=== PATIENT | male | born 1965 | race Caucasian/White ===

== ENCOUNTER 2016-10-17 09:18 | Emergency (ER) | payer OTHER ==
[2016-10-17] MEDS ORDERED: AZITHROMYCIN 250 MG TABLET PO STA (09:47)
[2016-10-17] MEDS ORDERED: guaiFENesin/DEXTROMETHORPHAN 10 ML UDC PO STA (09:47)
[2016-10-17] MEDS ORDERED: BENZONATATE 100 MG CAPSULE PO STA (09:47)
[2016-10-17] MEDS ORDERED: BENZONATATE 100 MG CAPSULE PO ONE (10:04)
[2016-10-17] MEDS ORDERED: AZITHROMYCIN 250 MG TABLET PO ONE ×2 (10:04→10:14)
[2016-10-17] MEDS ORDERED: guaiFENesin/DEXTROMETHORPHAN 10 ML UDC ONE (10:04)
== END 2016-10-17 10:22 | disposition home or self-care (01) ==
DX: J18.9 Pneumonia, unspecified organism (principal); F17.200 Nicotine dependence, unspecified, uncomplicated
CPT/HCPCS: 99282; 99284; A9270

== ENCOUNTER 2017-12-25 11:41 | Emergency (ER) | payer OTHER ==
[2017-12-25] MEDS ORDERED: SODIUM CHLORIDE 0.9% 1,000 ML IV ONE (12:38)
[2017-12-25] MEDS ORDERED: DEXAMETHASONE 10 MG/ML VIAL IVP STA (12:38)
--- NOTE | 2017-12-25 12:38 | ED Physician Documentation ---
PD HPI FEVER - Stated complaint Stated Complaint: FEVER/CHILLS - Chief complaint Chief Complaint: Fever - History obtained from History obtained from: Patient, Family - History of Present Illness Timing - onset: Last night Timing duration: Hours Timing details: Abrupt onset, Still present Associated symptoms: Chills, Sweats, Rigors, Other (muscle and joint pains.) Contributing factors: No: Sick contact Similar symptoms before: Diagnosis (pneumonia and fuo) Recently seen: Not recently seen - Additional information Additional information: 52 y/o male who has had a cyst removed from the left kidney in September has developed a fever last night with shaking chills and a headache. He does not have other respiratory symptoms. He gives a history of having fever spike and resolve over a day previously. Review of Systems Constitutional: denies: Fever Eyes: denies: Decreased vision Ears: denies: Ear pain Nose: denies: Congestion Throat: denies: Sore throat Cardiac: denies: Chest pain / pressure, Palpitations Respiratory: denies: Dyspnea, Cough GI: denies: Abdominal Pain, Nausea, Vomiting : denies: Dysuria, Frequency Skin: denies: Rash Musculoskeletal: reports: Extremity pain, Joint pain. denies: Neck pain, Back pain, Extremity swelling, Joint swelling Neurologic: denies: Generalized weakness, Focal weakness, Numbness PD PAST MEDICAL HISTORY - Past Medical History Past Medical History: Yes Cardiovascular: Pulmonary embolism - Past Surgical History Past Surgical History: No General: Other - Present Medications Home Medications: Ambulatory Orders Medication Instructions Recorded Confirmed Azithromycin [Zithromax] 250 mg PO DAILY #6 tablet 12/25/17 Rivaroxaban [Xarelto] 20 mg PO 12/25/17 - Allergies Allergies/Adverse Reactions: Allergies Allergy/AdvReac Type Severity Reaction Status Date / Time No Known Drug Allergies Allergy Verified 12/25/17 11:49 - Social History Does the pt smoke?: Yes Smoking Status: Current every day smoker Does the pt drink ETOH?: Yes Does the pt have substance abuse?: No - Immunizations Immunizations are current?: Yes - POLST Patient has POLST: No PD ED PE NORMAL - Vitals Vital signs reviewed: Yes (febrile ) - General General: Alert and oriented X 3, No acute distress, Well developed/nourished - HEENT HEENT: Atraumatic, PERRL, EOMI, Other (both TM's are inflammed with indistinct landmarks. ) - Neck Neck: Supple, no meningeal sign, No bony TTP - Cardiac Cardiac: No murmur, Other (tachy to 110) - Respiratory Respiratory: No respiratory distress - Abdomen Abdomen: Soft, Non tender - Back Back: No CVA TTP, No spinal TTP - Derm Derm: Normal color, Warm and dry, No rash - Extremities Extremities: No deformity, No edema - Neuro Neuro: Alert and oriented X 3, No motor deficit, No sensory deficit Eye Opening: Spontaneous Motor: Obeys Commands Verbal: Oriented GCS Score: 15 - Psych Psych: Normal mood, Normal affect Results - Vitals Vitals: Vital Signs - 24 hr 12/25/17 11:46 Temperature 38.4 C H Heart Rate 100 Respiratory 18 Rate Blood Pressure 126/70 O2 Saturation 97 Oxygen O2 Source Room air - Labs Labs: Laboratory Tests 12/25/17 12/25/17 12/25/17 12:00 12:45 12:45 WBC 11.3 H RBC 4.38 L Hgb 14.2 Hct 41.5 L MCV 94.7 H MCH 32.4 H MCHC 34.2 RDW 13.6 Plt Count 233 MPV 6.7 L Neut # 9.8 H Lymph # 0.8 L [place] # 0.7 Eos # 0.0 Baso # 0.1 Absolute Nucleated RBC 0.00 Nucleated RBC % 0.0 Sodium 132 L Potassium 3.9 Chloride 101 Carbon Dioxide 22 Anion Gap 9.0 BUN 10 Creatinine 0.9 Estimated GFR (MDRD) 89 Glucose 114 H Calcium 8.9 Total Bilirubin 0.9 AST 25 ALT 24 Alkaline Phosphatase 64 Troponin I Total Protein 7.4 Albumin 4.1 Globulin 3.3 Albumin/Globulin Ratio 1.2 Lipase 16 L Urine Color Urine Clarity Urine pH Ur Specific [place] Urine Protein Urine Glucose (UA) Urine Ketones Urine Occult Blood Urine Nitrite Urine Bilirubin Urine Urobilinogen Ur Leukocyte Esterase Ur Microscopic Review Urine Culture Comments Influenza A (Rapid) Negative Influenza B (Rapid) Negative 12/25/17 12/25/17 12:45 13:20 WBC RBC Hgb Hct MCV MCH MCHC RDW Plt Count MPV Neut # Lymph # [place] # Eos # Baso # Absolute Nucleated RBC Nucleated RBC % Sodium Potassium Chloride Carbon Dioxide Anion Gap BUN Creatinine Estimated GFR (MDRD) Glucose Calcium Total Bilirubin AST ALT Alkaline Phosphatase Troponin I < 0.04 Total Protein Albumin Globulin Albumin/Globulin Ratio Lipase Urine Color DARK YELLOW Urine Clarity CLEAR Urine pH 5.5 Ur Specific [place] 1.025 Urine Protein NEGATIVE Urine Glucose (UA) NEGATIVE Urine Ketones TRACE Urine Occult Blood NEGATIVE Urine Nitrite NEGATIVE Urine Bilirubin NEGATIVE Urine Urobilinogen 0.2 (NORMAL) Ur Leukocyte Esterase NEGATIVE Ur Microscopic Review NOT INDICATED Urine Culture Comments NOT INDICATED Influenza A (Rapid) Influenza B (Rapid) - Rads (name of study) 2 veiw chest Radiology: Prelim report reviewed (Impression: Minimal bibasilar atelectatic changes without acute consolidation.), EMP read indepedently, See rad report PD MEDICAL DECISION MAKING - ED course Complexity details: reviewed old records, reviewed results, re-evaluated patient , considered differential, d/w patient, d/w family ED course: 52-year-old male with acute fever chills and sweats has otitis on examination his chest x-ray is unremarkable blood work shows mild elevation of white blood cell count he is treated in the emergency department with dexamethasone and Rocephin we will place him on some azithromycin. Departure - Departure Disposition: 01 Home, Self Care Clinical Impression: Otitis media Qualifiers: Otitis media type: suppurative Chronicity: acute Laterality: bilateral Recurrence: not specified as recurrent Spontaneous tympanic membrane rupture: without spontaneous rupture Qualified Code(s): H66.003 - Acute suppurative otitis media without spontaneous rupture of ear drum, bilateral Instructions: ED Otitis Media Acute Adult Follow-Up: MONTY ODELL MD [Primary Care Provider] - Prescriptions: Azithromycin [Zithromax] 250 mg PO DAILY #6 tablet
[2017-12-25 12:52] LABS: BASOPHILS # (AUTO) 0.1 10^3/uL (0.0-0.1); BASOPHILS % (AUTO) 0.5 %; HGB - HEMOGLOBIN 14.2 g/dL (14.0-18.0); LYMPHOCYTES # (AUTO) 0.8 10^3/uL (1.5-3.5); LYMPHOCYTES % (AUTO) 7.1 %; MEAN CORPUSCULAR HEMOGLOBIN 32.4 pg (27.0-31.0); MEAN CORPUSCULAR HGB CONC 34.2 g/dL (32.0-36.0); MEAN CORPUSCULAR VOLUME 94.7 fL (80.0-94.0); MEAN PLATELET VOLUME 6.7 fL (7.4-11.4); MONOCYTES # (AUTO) 0.7 10^3/uL (0.0-1.0); MONOCYTES % (AUTO) 6.2 %; NEUTROPHILS # (AUTO) 9.8 10^3/uL (1.5-6.6); NEUTROPHILS % (AUTO) 86.2 %; PLT - PLATELET COUNT 233 10^3/uL (130-450); RED BLOOD COUNT 4.38 10^6/uL (4.70-6.10); RED CELL DISTRIBUTION WIDTH 13.6 % (12.0-15.0); WHITE BLOOD COUNT 11.3 x10^3/uL (4.8-10.8)
[2017-12-25 13:05] LABS: ALBUMIN 4.1 g/dL (3.2-5.5); ALBUMIN/GLOBULIN RATIO 1.2 (1.0-2.2); BILIRUBIN,TOTAL 0.9 mg/dL (0.2-1.0); CALCIUM 8.9 mg/dL (8.5-10.3); CREATININE 0.9 mg/dL (0.6-1.2); TOTAL PROTEIN 7.4 g/dL (6.7-8.2)
--- NOTE | 2017-12-25 13:15 | XRAY Report ---
EXAM: CHEST RADIOGRAPHY EXAM DATE: 12/25/2017 12:58 PM. CLINICAL HISTORY: Fever with chills. COMPARISON: 04/25/2015. TECHNIQUE: 2 views. FINDINGS: Lungs/Pleura: Minimal bibasilar atelectatic changes seen without evidence of acute consolidation. Mediastinum: Heart and mediastinal contours are unremarkable. Other: None. IMPRESSION: Minimal bibasilar atelectatic changes without acute consolidation. [facility] Referring Provider Line: [phone] SITE ID: [id number]
[2017-12-25] MEDS ORDERED: cefTRIAXone 1 GM in SODIUM CHLORIDE 0.9% MINIBAG 100 ML IV STA (13:25)
[2017-12-25 13:37] LABS: CLARITY,URINE CLEAR (CLEAR); GLUCOSE, URINE (UA) NEGATIVE (NEGATIVE); KETONES,URINE (UA) TRACE mg/dL (NEGATIVE); LEUKOCYTE ESTERASE, URINE NEGATIVE (NEGATIVE); NITRITE,URINE NEGATIVE (NEGATIVE); OCCULT BLOOD,URINE NEGATIVE (NEGATIVE); PH,URINE 5.5 PH (5.0-7.5); PROTEIN,URINE NEGATIVE (NEGATIVE); UROBILINOGEN,URINE 0.2 (NORMAL) E.U./dL (NORMAL)
[2017-12-25 13:38] LABS: BILIRUBIN,URINE NEGATIVE (NEGATIVE); ICTOTEST,URINE NEGATIVE
[2017-12-25] MEDS ORDERED: KETOROLAC 60 MG/2 ML VIAL IVP STA (14:04)
[2017-12-25 14:16] VITALS: BP 126/66
== END 2017-12-25 14:45 | disposition home or self-care (01) ==
LOC: ED 11:41
DX: H66.003 Acute suppurative otitis media without spontaneous rupture of ear drum, bilateral (principal); Z86.711 Personal history of pulmonary embolism; Z79.01 Long term (current) use of anticoagulants; F17.200 Nicotine dependence, unspecified, uncomplicated
CPT/HCPCS: 36415; 71046; 80053; 81001; 81003; 83690; 84484; 85025; 87086; 87275; 87276; 96374; 96375; 99283

== ENCOUNTER 2018-06-13 13:08 | Outpatient (CLI) | payer OTHER | END 2018-06-13 13:09 | disposition home or self-care (01) | LOC: SC 13:08 | PROVIDERS: ATTEND Nurse Practitioner Family | DX: G47.33 Obstructive sleep apnea (adult) (pediatric) (principal); E66.01 Morbid (severe) obesity due to excess calories; Z68.41 Body mass index [BMI] 40.0-44.9, adult | CPT/HCPCS: 99204; 99212 ==

== ENCOUNTER 2018-08-03 10:34 | Outpatient (CLI) | payer OTHER | END 2018-08-03 10:35 | disposition home or self-care (01) | LOC: SC 10:34 | PROVIDERS: ATTEND Nurse Practitioner Family | DX: G47.33 Obstructive sleep apnea (adult) (pediatric) (principal) | CPT/HCPCS: 99212; 99214 ==

== ENCOUNTER 2018-11-10 10:40 | Outpatient (CLI) | payer OTHER | END 2018-11-10 10:41 | disposition home or self-care (01) | LOC: SC 10:40 | PROVIDERS: ATTEND Nurse Practitioner Family | DX: G47.33 Obstructive sleep apnea (adult) (pediatric) (principal) | CPT/HCPCS: 99212; 99214 ==

== ENCOUNTER 2019-02-07 08:16 | Outpatient (CLI) | payer OTHER | END 2019-02-07 08:17 | disposition home or self-care (01) | LOC: SC 08:16 | PROVIDERS: ATTEND Nurse Practitioner Family | DX: G47.33 Obstructive sleep apnea (adult) (pediatric) (principal) | CPT/HCPCS: 99212; 99214 ==

== ENCOUNTER 2019-03-02 21:05 | Emergency (ER) | payer OTHER ==
[2019-03-02] MEDS ORDERED: SODIUM CHLORIDE 0.9% 1,000 ML IV ONE (21:46)
[2019-03-02 21:55] LABS: BASOPHILS # (AUTO) 0.1 10^3/uL (0.0-0.1); BASOPHILS % (AUTO) 1.3 %; EOSINOPHILS # (AUTO) 0.5 10^3/uL (0.0-0.7); EOSINOPHILS % (AUTO) 6.2 %; HGB - HEMOGLOBIN 15.1 g/dL (14.0-18.0); LYMPHOCYTES # (AUTO) 2.3 10^3/uL (1.5-3.5); LYMPHOCYTES % (AUTO) 28.5 %; MEAN CORPUSCULAR HEMOGLOBIN 31.7 pg (27.0-31.0); MEAN CORPUSCULAR HGB CONC 32.6 g/dL (32.0-36.0); MEAN CORPUSCULAR VOLUME 97.1 fL (80.0-94.0); MEAN PLATELET VOLUME 9.1 fL (7.4-11.4); MONOCYTES # (AUTO) 1.1 10^3/uL (0.0-1.0); MONOCYTES % (AUTO) 12.9 %; NEUTROPHILS # (AUTO) 4.1 10^3/uL (1.5-6.6); NEUTROPHILS % (AUTO) 50.6 %; PLT - PLATELET COUNT 309 10^3/uL (130-450); RED BLOOD COUNT 4.77 10^6/uL (4.70-6.10); RED CELL DISTRIBUTION WIDTH 12.6 % (12.0-15.0); WHITE BLOOD COUNT 8.2 x10^3/uL (4.8-10.8)
--- NOTE | 2019-03-02 21:56 | ED Physician Documentation ---
PD HPI CHEST PAIN - Stated complaint Stated Complaint: CP/COLMENARES - Chief complaint Chief Complaint: Cardiac - History obtained from History obtained from: Patient, Family - History of Present Illness Timing - onset: Today Timing - onset during: Rest Timing - duration: Minutes Timing - details: Abrupt onset, Now resolved Pain level max: 4 Pain level now: 0 Quality: Pressure, Tightness Location: Substernal Improved by: Nothing Worsened by: Other (nothing) Associated symptoms: No: Shortness of air, Diaphoresis, Nausea, Vomiting, Feeling faint / dizzy, General Weakness, Palpitations, Cough Similar symptoms before: Diagnosis (PE) Recently seen: Not recently seen - Additional information Additional information: 53-year-old male with a history of factor V Leiden and protein S deficiency who is on lifetime and a coagulation with Xarelto was sitting on his couch this evening when he developed substernal chest pain. He did develop a bit of a headache associated with this as well he did not have shortness of breath or diaphoresis. The episode lasted about 15 to 20 minutes he had pain of a 4 out of 10 maximum 0 now. He is come to the emerge department with concerns of another pulmonary and was not. He states this is not what this felt exactly like previously. He does indicate that he was out doing a lot of work this afternoon and he is quite active at work. He indicates that he has gained a lot of weight and has been working to improve his endurance after he had an operation to remove a cyst in his adrenal gland on the left side. He had to have this procedure done as an open procedure and is taken some time to recover from it. 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 He states that he tolerated this well he sweated a lot. Review of Systems Constitutional: reports: Fatigue, Sweats. denies: Fever Eyes: denies: Decreased vision Ears: denies: Ear pain Nose: denies: Rhinorrhea / runny nose, Congestion Throat: denies: Sore throat Cardiac: reports: Chest pain / pressure. denies: Palpitations, Pedal edema, Calf pain Respiratory: reports: Dyspnea. denies: Cough GI: denies: Abdominal Pain, Nausea, Vomiting : denies: Dysuria PD PAST MEDICAL HISTORY - Past Medical History Past Medical History: Yes Cardiovascular: Pulmonary embolism Respiratory: Shortness of breath Neuro: None Endocrine/Autoimmune: None GI: Other : None HEENT: Other Psych: Depression Musculoskeletal: Chronic back pain Derm: None - Past Surgical History Past Surgical History: No General: Other - Present Medications Home Medications: Ambulatory Orders Medication Instructions Recorded Confirmed Rivaroxaban [Xarelto] 20 mg PO DAILY 12/25/17 05/18/18 Bupropion HCl [Wellbutrin Xl] 1 tab ORAL DAILY 04/20/18 05/18/18 Sildenafil Citrate [Viagra] 1 tab ORAL PRN PRN 04/20/18 05/18/18 - Allergies Allergies/Adverse Reactions: Allergies Allergy/AdvReac Type Severity Reaction Status Date / Time No Known Drug Allergies Allergy Verified 05/18/18 14:21 - Social History Does the pt smoke?: Yes Smoking Status: Current every day smoker Does the pt drink ETOH?: Yes Does the pt have substance abuse?: No - Immunizations Immunizations are current?: Yes - POLST Patient has POLST: No PD ED PE NORMAL - Vitals Vital signs reviewed: Yes (hypertensive mild ) - General General: Alert and oriented X 3, No acute distress, Well developed/nourished - HEENT HEENT: Atraumatic, PERRL, EOMI - Neck Neck: Supple, no meningeal sign, No bony TTP - Cardiac Cardiac: RRR, No murmur - Respiratory Respiratory: No respiratory distress, Clear bilaterally - Abdomen Abdomen: Soft, Non tender - Back Back: No CVA TTP, No spinal TTP - Derm Derm: Normal color, Warm and dry, No rash - Extremities Extremities: No deformity, No tenderness to palpate, Normal ROM s pain, No edema, No calf tenderness / cord - Neuro Neuro: Alert and oriented X 3, No motor deficit, No sensory deficit, Normal speech Eye Opening: Spontaneous Motor: Obeys Commands Verbal: Oriented GCS Score: 15 - Psych Psych: Normal mood, Normal affect Results - Vitals Vitals: Vital Signs - 24 hr 03/02/19 03/02/19 03/02/19 21:08 21:30 21:47 Temperature 36.6 C Heart Rate 67 63 Respiratory 16 17 17 Rate Blood Pressure 132/72 H 125/70 O2 Saturation 96 95 03/02/19 03/02/19 03/02/19 22:02 22:26 22:54 Temperature Heart Rate 60 69 70 Respiratory 17 17 15 Rate Blood Pressure 118/71 106/67 O2 Saturation 95 94 03/03/19 00:08 Temperature Heart Rate 64 Respiratory 16 Rate Blood Pressure 108/68 O2 Saturation 97 Oxygen O2 Source Room air - EKG (time done) 2115 Rate: Rate (enter#) (65) Rhythm: NSR Compare to prior EKG: Changed from prior EKG (SPT 04-25-2015 rate has decreased and the voltage is less) Computer interpretation: Agree with computer - Labs Labs: Laboratory Tests 03/02/19 03/02/19 03/02/19 21:40 21:40 21:40 WBC 8.2 RBC 4.77 Hgb 15.1 Hct 46.3 MCV 97.1 H MCH 31.7 H MCHC 32.6 RDW 12.6 Plt Count 309 MPV 9.1 Neut # (Auto) 4.1 Lymph # (Auto) 2.3 [place] # (Auto) 1.1 H Eos # (Auto) 0.5 Baso # (Auto) 0.1 Absolute Nucleated RBC 0.00 Nucleated RBC % 0.0 Sodium 142 Potassium 4.3 Chloride 102 Carbon Dioxide 29 Anion Gap 11.0 BUN 14 Creatinine 1.2 Estimated GFR (MDRD) 63 L Glucose 95 Calcium 9.6 Total Bilirubin 0.7 AST 26 ALT 29 Alkaline Phosphatase 70 Troponin I < 0.04 Total Protein 7.5 Albumin 4.2 Globulin 3.3 Albumin/Globulin Ratio 1.3 Lipase 28 03/02/19 23:40 WBC RBC Hgb Hct MCV MCH MCHC RDW Plt Count MPV Neut # (Auto) Lymph # (Auto) [place] # (Auto) Eos # (Auto) Baso # (Auto) Absolute Nucleated RBC Nucleated RBC % Sodium Potassium Chloride Carbon Dioxide Anion Gap BUN Creatinine Estimated GFR (MDRD) Glucose Calcium Total Bilirubin AST ALT Alkaline Phosphatase Troponin I < 0.04 Total Protein Albumin Globulin Albumin/Globulin Ratio Lipase - Rads (name of study) chest Radiology: Prelim report reviewed (Impression: No acute radiographic pulmonary abnormalities.), EMP read indepedently, See rad report Procedures - IVC sono (time) 2119 Bedside IVC sono: IVC measures (cm) (1.6), IVC collapsed c insp (cm) (complete), Dehydration (est 1 liter deficit) PD MEDICAL DECISION MAKING - ED course Complexity details: reviewed results, re-evaluated patient, considered differential, d/w patient, d/w family ED course: Chest pain is resolved headache remains patient is found to be dehydrated on interrogation the inferior vena cava. Is administered saline.He has improvement in his headache feels well and a second troponin is obtained. His episode occurred about 830 and lasted 10 minutes. His second troponin is done at 11:30 PM. Departure - Departure Disposition: 01 Home, Self Care Clinical Impression: Dehydration Condition: Stable Instructions: ED Dehydration Follow-Up: MONTY ODELL MD [Primary Care Provider] - Discharge Date/Time: 03/03/19 00:15
[2019-03-02 22:10] LABS: ALBUMIN 4.2 g/dL (3.2-5.5); ALBUMIN/GLOBULIN RATIO 1.3 (1.0-2.2); BILIRUBIN,TOTAL 0.7 mg/dL (0.2-1.0); CALCIUM 9.6 mg/dL (8.5-10.3); CREATININE 1.2 mg/dL (0.6-1.2); TOTAL PROTEIN 7.5 g/dL (6.7-8.2)
--- NOTE | 2019-03-02 22:30 | XRAY Report ---
Reason: chest pain Procedure Date: 03/02/2019 Accession Number: [id number] / [id number] Procedure: XR - Chest 2 View X-Ray CPT Code: 75968 FULL RESULT: EXAM: CHEST RADIOGRAPHY EXAM DATE: 03/02/2019 10:02 PM. CLINICAL HISTORY: Chest pain. COMPARISON: CHEST 2 VIEW 12/25/2017 12:40 PM. TECHNIQUE: 2 views. FINDINGS: Lungs/Pleura: No dense consolidation. No large effusion or pneumothorax. No pulmonary edema. Mediastinum: Heart and mediastinal contours are unremarkable. Other: None. IMPRESSION: No acute radiographic pulmonary abnormalities. [facility]
[2019-03-03 00:09] VITALS: BP 108/68
== END 2019-03-03 00:15 | disposition home or self-care (01) ==
LOC: ED 21:05
DX: E86.0 Dehydration (principal); D68.51 Activated protein C resistance; D68.59 Other primary thrombophilia; Z79.01 Long term (current) use of anticoagulants; F17.200 Nicotine dependence, unspecified, uncomplicated
CPT/HCPCS: 36415; 71046; 80053; 83690; 84484; 85025; 93005; 96360; 99284

== ENCOUNTER 2019-09-05 14:42 | Outpatient (CLI) | payer OTHER ==
[2019-09-05 15:37] VITALS: BP 124/78
--- NOTE | 2019-09-05 15:37 | SLEEP CARE CONSULTATION ---
Information from patient questionnaire entered by Zuleyma Hernandez. I have reviewed and concur with the information entered by Zuleyma Hernandez. This document represents the service I personally performed and the decisions made by me, Mariam Gonzalez, RN, MSN, PNEUMATIC SYSTEMS OPERATOR. History of Present Illness Previous diagnosis: Severe, Obstructive Sleep Apnea-Hypopnea Syndrome AHI: 49.4 Reason for follow up: other (7 month) Equipment type: CPAP Equipment obtained from: [facility] (unable to get supplies due to . Getting filters online) Mask style: Nasal (Dreamwear) Mask brand: Respironics Backup mask available: No (keep current mask when replaced as a spare) Last cushion change: 3-4 months ago CPAP Compliance Data - Data Reviewed with Patient Average duration of nightly device use: 5. 67 Compliance rate %: 75.6 (180 days) Current pressure setting (cmH2O): 12-13 Humidity settin Heated hose settin Average residual AHI: 4.3 Subjective Missed days of use due to: reports: other (falling asleep without CPAP ) Patient concerns: denies: aerophagia, mask discomfort, air blowing in eyes, mask leak noise, condensation in mask/hose, nasal congestion, dry mouth, nose, throat, epistaxis, other Observed to snore while using device: No Current pressure setting perceived as: comfortable On therapy, patient: reports: sleeping better, awakening more refreshed, being more awake and alert during the day, more rested overall. denies: drowsiness while driving Initial [place] Sleepiness Scale score: 12 Current [place] Sleepiness Scale score: 6 Allergies and Home Medications Home medication list reviewed: Yes (no changes from 02/07/19 visit) Review of Systems Review of systems same as previous: Yes Physical Exam Blood Pressure: 124/78 Cuff size: long Heart Rate: 97 O2 Saturation: 63 Height: 6 ft 2 in Weight: 308 lb Weight change since last visit: gained 3 pounds Body Mass Index: 39.5 BMI Classification: Obesity Class 2 Impression and Plan 1. Obstructive Sleep Apnea-Hypopnea Syndrome, severe , with good overall treatment and good apnea control. However, there was fair treatment compliance the past 30 days. Compliance affected by falling asleep without CPAP. On CPAP therapy, the patient has better sleep quality and is more rested overall. For patient supply concerns. Patient was notified that another DME can be used. I will have my admissions coordinator inform of DME options. A [facility] prescription will then be made. Patient advised to contact this office if further supply problems. He has gained a few pounds instead of losing weight as planned. Current BMI 39. I explained how obesity increases the risk of apnea, CPAP pressure requirements and overall health risks especially cardiovascular and diabetes as weight gets higher. Thus patient is advised to lose weight. Weight loss can be done with reducing portion size, refined foods and balancing content with vegetables, fruit and protein. He was also advised how eating slower, logging his food intake , making small 10 pound weight loss goals will assist him to lose weight to get to ultimate goal. A diet consultation can be helpful in achieving optimal weight loss goals. The BMI chart was reviewed. The patient would like to reduce to 245 pounds bringing their BMI down to 31 . Patient encouraged to discuss their weight loss goals with their PCP and consider a referral to a thread machine operator if unable to reach his weight loss goals. He has just joined a gym to start exercise with spouse 3 days a week. I praised this effort as well as exercise will reduce some health risks of obesity. I will not change his pressure at this time as just controlling apnea. He is aware of symptoms to report for further adjustment until seen in 6 months to check his compliance and if pressure needs to be reduced for weight loss. Patient's apnea severity and rationale for treatment to reduce apnea, improve sleep quality and reduce cardiovascular and cerebrovascular events was reviewed. I showed him his sleep study hypnogram and associated hypoxia. He is advised to use CPAP with all sleep for maximum benefit of treatment. We discussed measures to reduce falling asleep without CPAP and to have spouse wake him if she notices him not using. I also reviewed the benefit of consistent device use of CPAP for depression/anxiety. * Continue CPAP pressure at [id number] * Transfer of care * Notify me if snoring with mask or feeling that the pressure is too much or too little * Attempt to lose weight * Call this office if any problems using CPAP * Return for follow up in 6 months , or sooner if concerns arise Time Spent with Patient (minutes): 30 I spent 100% of this visit face to face with the patient with greater than 50% of this was spent time counseling the patient and coordination of care.
== END 2019-09-05 14:43 | disposition home or self-care (01) ==
LOC: SC 14:42
PROVIDERS: ATTEND Nurse Practitioner Family
DX: G47.33 Obstructive sleep apnea (adult) (pediatric) (principal); E66.9 Obesity, unspecified; Z68.39 Body mass index [BMI] 39.0-39.9, adult
CPT/HCPCS: 99212; 99214

== ENCOUNTER 2021-06-26 08:37 | Outpatient (CLI) | payer OTHER ==
[2021-06-26 09:19] VITALS: BP 133/80
--- NOTE | 2021-06-26 09:19 | SLEEP CARE CONSULTATION ---
Information from patient questionnaire entered by Charito Neri MA. I have reviewed and concur with the information entered by Charito Neri MA. This document represents the service I personally performed and the decisions made by , Margarita Lowe ARNP. History of Present Illness Service Date and Time: 06/26/2021 0837 Previous diagnosis: Severe, Obstructive Sleep Apnea-Hypopnea Syndrome AHI: 49.4 Reason for follow up: annual (08/2019) Equipment type: CPAP Equipment obtained from: Other (No one at this time) Mask style: Nasal (Dreamwear) Backup mask available: Yes (old mask) Last cushion change: 5-6 months ago Prior sleep studies: Yes HPI additional information: BILLIE JORDAN was diagnosed to have severe, AHI 49.4, obstructive sleep apnea- hypopnea syndrome and returned today for CPAP therapy annual follow-up. CPAP Compliance Data - Data Reviewed with Patient Average duration of nightly device use: 6 hours 40 minutes Compliance rate %: 77.8 (180 day, 10-19-20 to 04-16-21) Current pressure setting (cmH2O): 12-13 Humidity settin Heated hose settin Average residual AHI: 1.8 Average large leak: 0 Subjective Patient concerns: denies: aerophagia, mask discomfort, air blowing in eyes, mask leak noise, condensation in mask/hose, nasal congestion, dry mouth, nose, throat, epistaxis, other Observed to snore while using device: No Current pressure setting perceived as: comfortable On therapy, patient: reports: sleeping better, awakening more refreshed, being more awake and alert during the day, more rested overall. denies: drowsiness while driving Initial [place] Sleepiness Scale score: 12 Current [place] Sleepiness Scale score: 6 (2020) Allergies and Home Medications Home medication list reviewed: Yes (Xarelto) Review of Systems Review of systems same as previous: Yes (no changes) Physical Exam Vital signs obtained and entered by: Halle ENRIQUE Blood Pressure: 133/80 (left) Cuff size: wrist Heart Rate: 69 O2 Saturation: 96 (with mask) Height: 6 ft 2 in Weight: 292 lb (with boots and coat) Body Mass Index: 37.5 BMI Classification: Obese Impression and Plan 1. Obstructive Sleep Apnea-Hypopnea Syndrome, severe, with fair treatment compliance and good apnea control when he was using it consistently. On CPAP therapy, the patient has better sleep quality and is more rested overall. Patient heard about the recall on his device and stop using it around the end of March. He then packed it and moved and has not used it since the move was completed. Patient does have [employer] insurance which will possibly get him a new device. Patient has already registered their device for the recall. Patient denies any black particles seen in machine or hoses, any unusual odors coming from device. Patient has not experienced any physical symptoms such as upper airway irritation, headache, skin or eye irritation, asthma, nausea/vomiting, difficulty breathing or chest pain. If patient is not able to sleep due to waking up choking, gasping for air or other respiratory distress that they may decide to continue using it until it is either replaced or repaired. I will make a prescription to update his device on recall. Patient would like to get his device online and does not want to deal with a local [employer] company. A copy of his prescription will be sent with the patient. He will let us know if there is anything else we can do to help him get his new device. Compliance visit 1 month after he receives his new device was reviewed and he voiced understanding. Patient's apnea severity and rationale for treatment to reduce apnea, improve sleep quality and reduce cardiovascular and cerebrovascular events was reviewed. I also reviewed the benefit of consistent device use of CPAP for depression/an xiety. Patient was encouraged to lose weight for their overall health and to reduce apneas. * Continue auto CPAP pressure at 12-13 cmH2O * Update device on recall * Notify me if snoring with mask or feeling that the pressure is too much or too little * Attempt to lose weight * Call this office if any problems using CPAP * Return for follow up one month after obtaining new device, or sooner if concerns arise Counseling Topics: Weight loss health impact Visit Type: In Office Time Spent with Patient (minutes): 20 Provider Statement: I spent 100% of the Face to Face Visit with the patient with greater than 50% spent counseling the patient and coordination of care.
== END 2021-06-26 08:38 | disposition home or self-care (01) ==
LOC: SC 08:37
PROVIDERS: ATTEND Nurse Practitioner Family
DX: G47.33 Obstructive sleep apnea (adult) (pediatric) (principal); E66.9 Obesity, unspecified; Z68.37 Body mass index [BMI] 37.0-37.9, adult
CPT/HCPCS: 99212; 99213

== ENCOUNTER 2021-07-19 18:07 | Emergency (ER) | payer OTHER ==
[2021-07-19 18:18] VITALS: BP 140/77
[2021-07-19] MEDS ORDERED: HYDROcod/ACETAM 5/325 MG TABLET PO STA (19:30)
[2021-07-19] MEDS ORDERED: AMOX/CLAV 875 MG/125 MG TABLET PO STA (19:30)
--- NOTE | 2021-07-19 19:33 | ED Physician Documentation ---
History of Present Illness - Stated complaint Stated Complaint: R SIDE TOOTH ACHE - Chief complaint Chief Complaint: Heent - Additonal information Additional information: 56-year-old male presents emergency department for evaluation of both right upper and right lower dental pain. 2 days ago he was chewing a protein bar and a fractured one of his lower molars that has been in poor repair. He is also been having pain in tooth #1 for about 2 weeks. He is continuously applying Anbesol for pain relief. He has not seen a dentist in many years but plans to call to schedule an appointment on Wednesday. No fevers. No trismus. Review of Systems Constitutional: denies: Fever, Chills Eyes: reports: Reviewed and negative Nose: reports: Reviewed and negative Throat: reports: Dental pain / toothache. denies: Oral lesions / sores, Sore throat, Swollen tonsils, Swallowed foreign body, Reviewed and negative Cardiac: reports: Reviewed and negative Respiratory: reports: Reviewed and negative GI: reports: Reviewed and negative : reports: Reviewed and negative PD PAST MEDICAL HISTORY - Past Medical History Past Medical History: Yes Cardiovascular: Deep vein thrombosis, Pulmonary embolism Respiratory: Shortness of breath Neuro: None Endocrine/Autoimmune: Type 1 diabetes GI: Other : None HEENT: Other Psych: Depression Musculoskeletal: Chronic back pain Derm: None - Past Surgical History Past Surgical History: No General: Other - Present Medications Home Medications: Ambulatory Orders Medication Instructions Recorded Confirmed Rivaroxaban [Xarelto] 20 mg PO DAILY 12/25/17 07/19/21 Bupropion HCl [Wellbutrin Xl] 1 tab ORAL DAILY 04/20/18 07/19/21 Sildenafil Citrate [Viagra] 1 tab ORAL PRN PRN 04/20/18 07/19/21 Amox/Clav 875/125 [Augmentin] 1 each PO Q12H #20 tablet 07/19/21 Chlorhexidine Gluconate [Peridex] 15 ml MM BID #118 ml 07/19/21 HYDROcod/ACETAM 5/325 [[place] 5/325] 1 tablet PO BID PRN #10 tablet 07/19/21 Metformin HCl [Metformin ER 500 mg PO DAILY 07/19/21 07/19/21 Osmotic] - Allergies Allergies/Adverse Reactions: Allergies Allergy/AdvReac Type Severity Reaction Status Date / Time No Known Drug Allergies Allergy Verified 07/19/21 18:16 - Social History Does the pt smoke?: Yes Smoking Status: Current every day smoker Does the pt drink ETOH?: Yes Does the pt have substance abuse?: No - Immunizations Immunizations are current?: Yes - POLST Patient has POLST: No PD ED PE EXPANDED - General General: Alert, No acute distress, Well developed/nourished - HEENT HEENT: Moist mucous membranes, Pharynx normal, Other (Teeth in generally poor repair. Tooth #1 is sensitive to palpation. Some mild gumline erythema but no fluctuance or obvious drainage. Tooth #29 with significant gingival plaque. It is fractured posteriorly. No fluctuance or drainage.). No: Pharyngeal erythema, Swollen tonsils, Tonsillar exudate - Cardiac Cardiac: Regular Rate, Radial strong equal, Cap refill < 2 sec - Respiratory Respiratory: Clear to ausultation marco a. No: Distress, Labored Results - Vitals Vitals: Vital Signs - 24 hr 07/19/21 18:16 Temperature 36.7 C Heart Rate 84 Respiratory 16 Rate Blood Pressure 140/77 H O2 Saturation 96 Oxygen O2 Source Room air PD MEDICAL DECISION MAKING - ED course Complexity details: d/w patient, d/w family ED course: 56-year-old male presents emergency department for evaluation of tooth pain. Tooth #1 and 29 are quite painful though #29 is the fractured tooth. He has not seen a dentist in quite some time and most of his teeth are in poor repair. He has significant gingival plaque. No trismus no fevers. Normal phonation. Patient is going to call dental to schedule an appointment on Wednesday. In the short-term he will be started on Augmentin as well as a limited amount of hydrocodone. A prescription will also be sent for Peridex mouth rinse. Emergent return precautions discussed for fevers, dysphonia trismus difficulty swallow or inability to tolerate oral secretions I am prescribing a short course of short-acting opioid pain medication for this patient. I have reviewed the patients CAPTURE MANAGER and no concerning findings were noted. I have discussed that the opioids are for short term therapy only, and will not be refilled from the ED. Departure - Departure Disposition: 01 Home, Self Care Clinical Impression: Dental decay, Pain due to dental caries Tooth fracture Qualifiers: Encounter type: initial encounter Fracture type: closed Qualified Code(s): S02.5XXA - Fracture of tooth (traumatic), initial encounter for closed fracture Condition: Stable Record reviewed to determine appropriate education?: Yes Prescriptions: Amox/Clav 875/125 [Augmentin] 1 each PO Q12H #20 tablet HYDROcod/ACETAM 5/325 [[place] 5/325] 1 tablet PO BID PRN #10 tablet PRN Reason: Pain Chlorhexidine Gluconate [Peridex] 15 ml MM BID #118 ml Comments: Paresh letaiyana have you start taking the antibiotics for your tooth pain. The prescription has been sent to [facility] in [place]. I recommend you continue the Tylenol or ibuprofen. For the severe pain you can take the [place]. Would also like you to rinse your mouth with the Peridex twice daily until seen by a dentist. If at any point you are unable to fully open your mouth, cannot swallow normally have a high-pitched voice or significant/severe facial swelling then please return to the ER for a second evaluation. Is going to be critical in the long-term the see a dentist for follow-up as long-term repair is going to be necessary.
== END 2021-07-19 19:45 | disposition home or self-care (01) ==
LOC: ED 18:07
DX: K02.9 Dental caries, unspecified (principal); K08.89 Other specified disorders of teeth and supporting structures; S02.5XXA Fracture of tooth (traumatic), initial encounter for closed fracture; X58.XXXA Exposure to other specified factors, initial encounter; E10.9 Type 1 diabetes mellitus without complications; Z79.84 Long term (current) use of oral hypoglycemic drugs; Z86.718 Personal history of other venous thrombosis and embolism; Z86.711 Personal history of pulmonary embolism; Z79.01 Long term (current) use of anticoagulants; F17.200 Nicotine dependence, unspecified, uncomplicated
CPT/HCPCS: 99283; A9270

== ENCOUNTER 2025-06-04 21:08 | Observation (INO) ==
--- OUTSIDE RECORDS SUMMARY | 2025-06-04 21:16 | EXTERNAL MEDICAL SUMMARY RPT | Continuity of Care Document ---
Author Organization [facility] Address [address] [place] [id number] Phone Care Team Providers Care Caseworker Protective Services Name Role Phone Unavailable Unavailable [email or web address] Unavailable Unavailable Medications date description facility 2025-05-30 00:00 Oxycodone [facility] 2025-05-30 00:00 Tamsulosin [facility] Problems date description facility 2025-05-30 00:00 Calculus of left kidney [facility] Procedures date description facility 2025-05-29 00:00 CT kidney, ureter and bladder [facility] Results/Labs test date facility value unit notes Result panel 1 Specimen collection (procedure) (no date) [facility] (missing) (missing) (missing) Result panel 2 Specimen collection (procedure) (no date) [facility] (missing) (missing) (missing) Result panel 3 Specimen collection (procedure) (no date) [facility] (missing) (missing) (missing) Result panel 4 Specimen collection (procedure) (no date) [facility] (missing) (missing) (missing) Result panel 5 Specimen collection (procedure) (no date) [facility] (missing) (missing) (missing) Result panel 6 Specimen collection (procedure) (no date) [facility] (missing) (missing) (missing) Result panel 7 Specimen collection (procedure) (no date) [facility] (missing) (missing) (missing) Result panel 8 Specimen collection (procedure) (no date) [facility] (missing) (missing) (missing) Result panel 9 Specimen collection (procedure) (no date) [facility] (missing) (missing) (missing) Result panel 10 Specimen collection (procedure) (no date) [facility] (missing) (missing) (missing) Result panel 11 Specimen collection (procedure) (no date) [facility] (missing) (missing) (missing) Result panel 12 Specimen collection (procedure) (no date) [facility] (missing) (missing) (missing) Result panel 13 Specimen collection (procedure) (no date) [facility] (missing) (missing) (missing) Result panel 14 Specimen collection (procedure) (no date) [facility] (missing) (missing) (missing) Result panel 15 Specimen collection (procedure) (no date) [facility] (missing) (missing) (missing) Result panel 16 Specimen collection (procedure) (no date) [facility] (missing) (missing) (missing) Result panel 17 Specimen collection (procedure) (no date) [facility] (missing) (missing) (missing) Result panel 18 Specimen collection (procedure) (no date) [facility] (missing) (missing) (missing) Result panel 19 Specimen collection (procedure) (no date) [facility] (missing) (missing) (missing) Result panel 20 Specimen collection (procedure) (no date) [facility] (missing) (missing) (missing) Result panel 21 Specimen collection (procedure) (no date) [facility] (missing) (missing) (missing) Result panel 22 Specimen collection (procedure) (no date) [facility] (missing) (missing) (missing) Result panel 23 Specimen collection (procedure) (no date) [facility] (missing) (missing) (missing) Result panel 24 Specimen collection (procedure) (no date) [facility] (missing) (missing) (missing) Result panel 25 Specimen collection (procedure) (no date) [facility] (missing) (missing) (missing) Result panel 26 Specimen collection (procedure) (no date) [facility] (missing) (missing) (missing) Result panel 27 Specimen collection (procedure) (no date) [facility] (missing) (missing) (missing) Result panel 28 Specimen collection (procedure) (no date) [facility] (missing) (missing) (missing) Result panel 29 Specimen collection (procedure) (no date) [facility] (missing) (missing) (missing) Result panel 30 Specimen collection (procedure) (no date) [facility] (missing) (missing) (missing) Result panel 31 Specimen collection (procedure) (no date) [facility] (missing) (missing) (missing) Result panel 32 Specimen collection (procedure) (no date) [facility] (missing) (missing) (missing) Result panel 33 Specimen collection (procedure) (no date) [facility] (missing) (missing) (missing) Result panel 34 Specimen collection (procedure) (no date) [facility] (missing) (missing) (missing) Result panel 35 Specimen collection (procedure) (no date) [facility] (missing) (missing) (missing) Result panel 36 Specimen collection (procedure) (no date) [facility] (missing) (missing) (missing) Result panel 37 Specimen collection (procedure) (no date) [facility] (missing) (missing) (missing) Result panel 38 Specimen collection (procedure) (no date) [facility] (missing) (missing) (missing) Result panel 39 Specimen collection (procedure) (no date) [facility] (missing) (missing) (missing) Result panel 40 Specimen collection (procedure) (no date) [facility] (missing) (missing) (missing) Result panel 41 Specimen collection (procedure) (no date) [facility] (missing) (missing) (missing) Result panel 42 Specimen collection (procedure) (no date) [facility] (missing) (missing) (missing) Result panel 43 Specimen collection (procedure) (no date) [facility] (missing) (missing) (missing) Result panel 44 Specimen collection (procedure) (no date) [facility] (missing) (missing) (missing) Result panel 45 Specimen collection (procedure) (no date) [facility] (missing) (missing) (missing) Result panel 46 Specimen collection (procedure) (no date) [facility] (missing) (missing) (missing) Result panel 47 Specimen collection (procedure) (no date) [facility] (missing) (missing) (missing) Result panel 48 Specimen collection (procedure) (no date) [facility] (missing) (missing) (missing) Result panel 49 Specimen collection (procedure) (no date) [facility] (missing) (missing) (missing) Result panel 50 Specimen collection (procedure) (no date) [facility] (missing) (missing) (missing) Result panel 51 Specimen collection (procedure) (no date) [facility] (missing) (missing) (missing) Result panel 52 Specimen collection (procedure) (no date) [facility] (missing) (missing) (missing) Result panel 53 Specimen collection (procedure) (no date) [facility] (missing) (missing) (missing) Result panel 54 Specimen collection (procedure) (no date) [facility] (missing) (missing) (missing) Result panel 55 Specimen collection (procedure) (no date) [facility] (missing) (missing) (missing) Result panel 56 Specimen collection (procedure) (no date) [facility] (missing) (missing) (missing) Result panel 57 Specimen collection (procedure) (no date) [facility] (missing) (missing) (missing) Result panel 58 Specimen collection (procedure) (no date) [facility] (missing) (missing) (missing) Result panel 59 Specimen collection (procedure) (no date) [facility] (missing) (missing) (missing) Result panel 60 Specimen collection (procedure) (no date) [facility] (missing) (missing) (missing) Result panel 61 Specimen collection (procedure) (no date) [facility] (missing) (missing) (missing) Result panel 62 Specimen collection (procedure) (no date) [facility] (missing) (missing) (missing) Result panel 63 Specimen collection (procedure) (no date) [facility] (missing) (missing) (missing) Result panel 64 Specimen collection (procedure) (no date) [facility] (missing) (missing) (missing) Result panel 65 Specimen collection (procedure) (no date) [facility] (missing) (missing) (missing) Result panel 66 Specimen collection (procedure) (no date) [facility] (missing) (missing) (missing) Result panel 67 Specimen collection (procedure) (no date) [facility] (missing) (missing) (missing) Result panel 68 Specimen collection (procedure) (no date) [facility] (missing) (missing) (missing) Result panel 69 Specimen collection (procedure) (no date) [facility] (missing) (missing) (missing) Result panel 70 Specimen collection (procedure) (no date) [facility] (missing) (missing) (missing) Result panel 71 Specimen collection (procedure) (no date) [facility] (missing) (missing) (missing) Result panel 72 Specimen collection (procedure) (no date) [facility] (missing) (missing) (missing) Result panel 73 Specimen collection (procedure) (no date) [facility] (missing) (missing) (missing) Result panel 74 Specimen collection (procedure) (no date) [facility] (missing) (missing) (missing) Result panel 75 Specimen collection (procedure) (no date) [facility] (missing) (missing) (missing) Result panel 76 Specimen collection (procedure) (no date) [facility] (missing) (missing) (missing) Result panel 77 Specimen collection (procedure) (no date) [facility] (missing) (missing) (missing) Result panel 78 Specimen collection (procedure) (no date) [facility] (missing) (missing) (missing) Result panel 79 Urine squamous epithelial cell detection 2025-05-29 22:15:07 [facility] 0-1 /hpf (missing) (miss ing) Result panel 80 Urine calcium oxalate crystal detection 2025-05-29 22:15:07 [facility] Occasional (missing) ([facility] ing) Result panel 81 Urine mucus detection 2025-05-29 22:15:07 [facility] 4+ (missing) (missing) Result panel 82 Microscopic analysis of urine for red blood cells (RBC) 2025-05-29 22:15:07 [facility] 30-100/hpf (missing) (missing) Result panel 83 Microscopic analysis of urine for white blood cells (WBC) 2025-05-29 22:15:07 [facility] 1-5/hpf (missing) (missing) Result panel 84 Sodium [Moles/volume] in Serum or Plasma 2025-05-29 22:21:07 [facility] 137 mmol/L ([facility]) Result panel 85 Potassium [Moles/volume] in Serum or Plasma 2025-05-29 22:21:07 [facility] 4.4 mmol/L ([facility]) Result panel 86 Chloride [Moles/volume] in Serum or Plasma 2025-05-29 22:21:07 [facility] 104 mmol/L ([facility]) Result panel 87 Carbon dioxide, total [Moles/volume] in Serum or Plasma 2025-05-29 22:21:07 [facility] 26 mmol/L ([facility]) Result panel 88 Urea nitrogen [Mass/volume] in Serum or Plasma 2025-05-29 22:21:07 [facility] 12 mg/dL ([facility]) Result panel 89 Creatinine [Mass/volume] in Serum or Plasma 2025-05-29 22:21:07 [facility] 0.90 mg/dL ([facility]) Result panel 90 Glomerular filtration rate (GFR) estimation 2025-05-29 22:21:07 [facility] > 60 mL/min (missing) (missing) Result panel 91 BUN/creatinine ratio 2025-05-29 22:21:07 [facility] 13. 3 (missing) (missing) Result panel 92 Glucose [Mass/volume] in Serum or Plasma 2025-05-29 22:21:07 [facility] 242 mg/dL ([facility]) Result panel 93 Calcium [Mass/volume] in Serum or Plasma 2025-05-29 22:21:07 [facility] 9.3 mg/dL (m issing) Result panel 94 White blood cell count 2025-05-29 22:21:07 [facility] 8 .3 X10^3/uL (missing) Result panel 95 Red blood cell count 2025-05-29 22:21:07 [facility] 4.6 4 X10^6/uL (missing) Result panel 96 Hemoglobin 2025-05-29 22:21:07 [facility] 15.0 g/d L (missing) Result panel 97 Hematocrit 2025-05-29 22:21:07 [facility] 44.4 % (missing) Result panel 98 MCV (mean corpuscular volume ) determination 2025-05-29 22:21:07 [facility] 95.8 fL (mis sing) Result panel 99 Mean corpuscular hemoglobin (MCH) determination 2025-05-29 22:21:07 [facility] 32.4 PG (missing) Result panel 100 Mean corpuscular hemoglobin concentration (MCHC) determination 2025-05-29 22:21:07 [facility] 33.8 % (mis sing) Result panel 101 Red cell distribution width determination 2025-05-29 22:21:07 [facility] 12.9 % (mis sing) Result panel 102 Platelet count 2025-05-29 22:21:07 [facility] 330 X10^3/uL (missing) Result panel 103 Automated neutrophil % 2025-05-29 22:21:07 [facility] 6 3.5 % (missing) Result panel 104 Automated lymphocyte % 2025-05-29 22:21:07 [facility] 2 3.3 % (missing) Result panel 105 Automated monocyte % 2025-05-29 22:21:07 [facility] 8.0 % (missing) Result panel 106 Automated eosinophil % 2025-05-29 22:21:07 [facility] 4 .0 % (missing) Result panel 107 Automated basophil % 2025-05-29 22:21:07 [facility] 1.2 % (missing) Result panel 108 Absolute neutrophil count 2025-05-29 22:21:07 [facility] 5300 /uL (missing) Result panel 109 Absolute lymphocyte count 2025-05-29 22:21:07 [facility] 1900 /uL (missing) Result panel 110 Automated blood monocyte count 2025-05-29 22:21:07 [facility] 700 /uL (missing) Result panel 111 Autom[facility] eosinophil [facility] 2025-05-29 [facility] Result panel 112 Automated basophil count 2025-05-29 22:21:07 [facility] 100 /uL (missing) Result panel 113 Squamous Epithelial Cell Urine 2025-05-29 22:37 [facility] 0-1 /HPF (missing) (missing) WBC Urine 2025-05-29 22:37 [facility] 1-5/HPF (missing) (missing) Urine Volume 2025-05-29 22:37 [facility] 10mL (spun) (missing) Urine Source: Urine, Clean Catch Culture if Indicated? Y RBC Urine 2025-05-29 22:37 [facility] 30-100/HPF (missing) (missing) Mucus Urine 2025-05-29 22:37 [facility] 4 (missing) (missing) Culture Indicated Urine 2025-05-29 22:37 [facility] Cult Not Indicated (missing) (missing) Bacteria Urine 2025-05-29 22:37 [facility] Few (2-10) (missing) (missing) Calcium Oxalate Crystals Urine 2025-05-29 22:37 [facility] Occasional (missing) (missing) Result panel 114 CAT scan report 2025-05-29 23:30 [facility] (missing) ( missing) (missing) Result panel 115 Basophils Percent Auto 2025-05-30 00:26 [facility] 1.2 % (missing) Basophils Absolute Auto 2025-05-30 00:[address] [place] [address] 100 /ul (missing) Red Cell Distribution Width 2025-05-30 00:26 [facility] 12.9 % (missing) Hemoglobin 2025-05-30 00:[address] [place] [address] 15.0 g/dl (missing) Lymphocytes Absolute Auto 2025-05-30 00:[address] [place] [address] 1 900 /ul (missing) Lymphocytes Percent Auto 2025-05-30 00:[address] [place] [address] 23 .3 % (missing) Eosinophils Absolute Auto 2025-05-30 00:[address] [place] [address] 3 00 /ul (missing) Mean Corpuscular Hemoglobin 2025-05-30 00:[address] [place] [address] 32.4 pg (missing) Mean Corpuscular HGB Conc 2025-05-30 00:26 [facility] 3 3.8 % (missing) Platelet Count 2025-05-30 00:26 [facility] 330 x1 0 3/ul (missing) Eosinophils Percent Auto 2025-05-30 00:[address] [place] [address] 4. 0 % (missing) Red Blood Cell Count 2025-05-30 00:[address] [place] [address] 4.64 x10 6/ul (missing) Hematocrit 2025-05-30 00:[address] [place] [address] 44.4 % (missing) Neutrophils Absolute Auto 2025-05-30 00:[address] [place] [address] 5 300 /ul (missing) Neutrophils Percent Auto 2025-05-30 00:[address] [place] [address] 63 .5 % (missing) Monocytes Absolute Auto 2025-05-[address] [place] [address] 700 /ul (missing) Monocytes Percent Auto 2025-05-30 00:[address] [place] [address] 8.0 % (missing) White Blood Cell Count 2025-05-[address] [place] [address] 8.3 x10 3/ul (missing) Mean Corpuscular Volume 2025-05-30 00:[address] [place] [address] 95. 8 fl (missing) Result panel 116 Estimated Glomerular Filt Rate 2025-05-30:[address] [place] [address] > 60 ml/min Reported eGFR is based the CKD-EPI 2020 equation that does not use a race coefficient. An eGFR below 60 mL/min/1.73m2 suggests that some kidney damage has occurred, and indicative of chronic kidney disease if persisting greater than 3 months. An eGFR less than 15 is indicative of kidney failure. Creatinine 2025-05-30:[address] [place] [address] 0.90 mg/dl (missing) Chloride 2025-05-30 00:[address] [place] [address] 104 mmol/l (missing) Blood Urea Nitrogen 2025-05-30:[address] [place] [address] 12 mg/dl (missing ) BUN Creatinine Ratio 2025-05-30:[address] [place] [address] 13.3 (missing) (missing ) Sodium 2025-05-30:[address] [place] [address] 137 mmol/l (missing) Glucose 2025-05-30:[address] [place] [address] 242 mg/dl (missing) Carbon Dioxide 2025-05-30:[address] [place] [address] 26 mm ol/l (missing) Potassium 2025-05-30:[address] [place] [address] 4.4 mmol/l (missing) Calcium 2025-05-30:[address] [place] [address] 9.3 mg/dl (missing) Result panel 117 UROBILINOGEN,URINE 2025-06-03 03:00 [facility] 0.2 (NORMAL) e.u./dl (missing) SPECIFIC GRAVITY,URINE 2025-06-03 03:00 [facility] 1.020 (missing) (missing) GLUCOSE, URINE (UA) 2025-06-03 03:00 [facility] 100 mg/dl (missing) WBC,URINE 2025-06-03 03:00 [facility] 6-10 /hpf (missing) RBC,URINE 2025-06-03 03:00 [facility] 6-10 /hpf (missing) PH,URINE 2025-06-03 03:00 [facility] 6.5 ph (missing) CLARITY,URINE 2025-06-03 03:00 [facility] CLEAR (missing) (missing) SQUAMOUS EPITHELIAL CELL,UR 2025-06-03 03:00 [facility] FEW Squamous (missing) (missing) BACTERIA,URINE 2025-06-03 03: [facility] Few /hpf (missing) URINE MICROSCOPIC INDICATED? 2025-06-03 03:00 [facility] INDICATED (missing) (missing) OCCULT BLOOD,URINE 2025-06-03:00 [facility] LARGE (missing) (missing) LEUKOCYTE ESTERASE, URINE 2025-06-03 03:00 [facility] NEGATIVE (missing) (missing) NITRITE,URINE 2025-06-03 03:00 [facility] NEGATIVE (missing) (missing) BILIRUBIN,URINE 2025-06-03 03:00 [facility] NEGATIVE (missing) Bilirubin can be influenced by color interference. Please correlate positive results with clinical presentation KETONES,URINE (UA) 2025-06-03 03:00 [facility] NEGATIVE mg/dl (missing) PROTEIN,URINE 2025-06-03 03:00 [facility] NEGATIVE mg/dl (missing) UR CULTURE IF IND 2025-06-03 03:00 [facility] NOT INDICATED (missing) (missing) WBC CLUMPS,URINE 2025-06-03 03:00 [facility] PRESENT (missing) (missing) COLOR,URINE 2025-06-03:00 [facility] YELLOW (missing) URINE CLEAN CATCH Social History date description facility 2025-05-30 00:00 Never smoked tobacco (finding) [facility] Vital Signs date measurement value units 2025-05-29 00:00 BMI 34.0 kg/m2 2025-05-29 00:00 height_metric 187.96 cm 2025-05-29 00:00 respiration_rate 18 /min 2025-05-29 00:00 temperature_standard 98.1 F 2025-05-29 00:00 weight_metric 120.20 kg 2025-05-30 00:00 BP_diastolic 83 mmHg 2025-05-30 00:00 BP_systolic 143 mmHg 2025-05-30 00:00 heart_rate 88 /min 2025-05-30 00:00 o2_saturation 96 %
--- NOTE | 2025-06-04 21:19 | ED Physician Documentation ---
PD HPI ABD PAIN Stated complaint Stated Complaint: GI Chief complaint Chief Complaint: Back Pain Additional information Additional information: HPI from patient. Notes from yesterday's [facility] ED visit ROS reviewed and this information contributes to HPI, as well. Patient complains of left flank pain, waxing and waning x 6 days. No inciting event, and patient has not noted any exacerbating factors. Patient has had varying degrees relief with oxycodone. He was evaluated in [facility] emergency department 6 days ago for this pain and was found to have a 1 cm left UVJ ureteral calculus. Patient then presented to this emergency department yesterday for recurrent episodes of the left flank pain, at that point unrelieved with the p.o. oxycodone. UA at that time showed 6-10 RBC/hpf and 6-10 WBC/hpf, negative nitrites, few bacteria. Pain was controlled with IV toradol and dilaudid and he was discharged home. 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 Patient denies fever, dysuria, gross hematuria. Prior to 6 days ago, patient had not had renal colic before. Patient says he had been told of kidney stones noted on imaging studies but did not have correlative symptoms until 6 days ago. Since his evaluation at [facility] 6 days ago, patient has been making efforts to obtain urology referral but has been unsuccessful thus far; he was told he would require a referral from PCP but has not been able to get in touch with PCP. PMHx includes PE (takes eliquis), DM. Meds/Allgy Home Medications Ambulatory Orders Medication Instructions Recorded Confirmed rivaroxaban 20 mg tablet (Xarelto) 20 mg PO DAILY 12/1406/03/25 dulaglutide 1.5 mg/0.5 mL 1.5 mg subcut OAW 06/03/25 1 subcutaneous pen injector (Trulicity) metformin 500 mg tablet,extended 1,000 mg PO DAILY 06/03/25 release 24 hr oxycodone 5 mg tablet 5 mg PO Q6H PRN pain 5 06/03/25 tamsulosin 0.4 mg capsule 0.4 mg PO DAILY 06/03/25 Allergies Allergies Allergy/AdvReac Type Severity Reaction Status Date / Time No Known Drug Allergies Allergy Verified 06/04/25 21:11 PFSH Active Problems All Active Problems (Updated 06/05/25 @ 00:32 by Jae Khan MD) Renal colic on left side (Acute) Calculus of proximal left ureter (Acute) Dehydration (Acute) Otitis media (Acute) Pneumonia (Acute) Chest pain (Acute) Medical History Medical History (Updated 06/05/25 @ 00:32 by Jae Khan MD) Adrenal gland cyst Diabetes type 2 Kidney stone Pulmonary embolism Social History Social History (Updated 06/03/25 @ 02:50 by Marie Foster RN) Smoking Status: Former smoker If you are a former smoker, when did you quit? (Date/Year): 8190822 Number of Years Smoked: 40 Second hand tobacco smoke exposure: No Do you dip or chew tobacco?: No Do you vape?: No Patient requests smoking cessation consult: No Initiate information on smoking cessation: No Level: Independent Do you feel safe in your home environment?: Yes History of physical, verbal, emotional, or financial abuse?: No Frequency: Occasional Substance Use: denies use POLST Patient has POLST: No Exam Exam Vital Signs: Vital Signs x48h Temp Pulse Resp BP Pulse Ox 06/04/25 23:24 59 L 12 166/93 H 95 06/04/25 21:11 36.5 C 64 20 156/61 H 98 Constitutional normal general appearance, distress noted (moderate) and alert appears to be in moderate painful distress Respiratory breath sounds equal bilaterally and clear to auscultation bilaterally Cardiovascular normal heart rate noted and regular rhythm noted Gastrointestinal abdomen soft to palpation, nontender to palpation, nondistended and normoactive bowel sounds Genitourinary no CVA tenderness Results Vitals Vitals: Vital Signs - 24 hr 06/04/25 21:11 06/04/25 21:48 06/04/25 22:47 Temperature 36.5 C Temperature Source Temporal Artery Scan Pulse Rate 64 Respiratory Rate 20 Blood Pressure 156/61 H O2 Saturation 98 O2 Source Room air Pain Intensity 7 8 8 06/04/25 23:24 Temperature Temperature Source Pulse Rate 59 L Respiratory Rate 12 Blood Pressure 166/93 H O2 Saturation 95 O2 Source Room air Pain Intensity 2 Oxygen O2 Source Room air Labs Labs: Laboratory Tests 06/04/25 06/04/25 21:25 23:50 WBC 7.6 RBC 4.16 L Hgb 13.1 L Hct 40.0 L MCV 96.2 H MCH 31.5 H MCHC 32.8 RDW 12.0 Plt Count 270 MPV 9.0 Neut # (Auto) 4.6 Lymph # (Auto) 1.5 [place] # (Auto) 1.0 Eos # (Auto) 0.4 Baso # (Auto) 0.1 Absolute Nucleated RBC 0.00 Nucleated RBC % 0.0 Sodium 137 Potassium 3.9 Chloride 102 Carbon Dioxide 30 Anion Gap 5.0 L BUN 19 Creatinine 1.4 H Estimated GFR (MDRD) 52 L Glucose 230 H Calcium 8.9 Total Bilirubin 0.4 AST 14 ALT 14 Alkaline Phosphatase 57 Total Protein 7.1 Albumin 4.2 Globulin 2.9 Albumin/Globulin Ratio 1.4 Lipase 22 Urine Color LT. YELLOW Urine Clarity CLEAR Urine pH 7.5 Ur Specific [place] 1.015 Urine Protein TRACE Urine Glucose (UA) >=1000 H Urine Ketones NEGATIVE Urine Occult Blood TRACE-INTACT Urine Nitrite NEGATIVE Urine Bilirubin NEGATIVE Urine Urobilinogen 0.2 (NORMAL) Ur Leukocyte Esterase NEGATIVE Urine RBC 0-5 Urine WBC 0-3 Ur Squamous Epith Cells FEW Squamous Urine Bacteria Rare Ur Microscopic Review INDICATED Urine Culture Comments NOT INDICATED PD Medical Decision Making ED course Complexity details: reviewed results, re-evaluated patient, considered differential and d/w patient ED course: Unremarkable CBC including normal white blood cell count. Mild hyperglycemia (230); patient is DMII. Minimally elevated creatinine (1.4) with normal BUN (19). IV is established and he is given 4 mg IV Zofran along with 1 mg IV Dilaudid. I reviewed [facility] ED MD note from yesterday's visit; these notes indicate that ED MD had the records from [facility] ED visit faxed to him and he reviewed them, recording in his record that those notes reflect CT scan demonstrated 1 cm calculus in the left UVJ. Patient required two more doses of dilaudid during my shift due to recurring left flank pain. I discussed this case with Dr. Payton (on-call urology for [facility]), recommends admit to hospitalist service and he will consult in AM. I then d/w Dr. Kenny (on-call [facility] hospitalist) who accepts patient to [facility] , hospitalist service. Discharge Plan Discharge Patient Disposition: [facility] DC/Xfer Condition: Good Clinical Impression: Renal colic on left side Interventions: ED Admission Assessment Last Done: 06/05/25 01:42 Vitals documented within 30 minutes of discharge?: Yes
[2025-06-04 21:33] LABS: HCT - HEMATOCRIT 40.0 % (42.0-52.0); HGB - HEMOGLOBIN 13.1 g/dL (14.0-18.0); MEAN PLATELET VOLUME 9.0 fL (7.4-11.4); NRBC ABSOLUTE COUNT (AUTO) 0.00 x10^3/uL; NUCLEATED RED BLOOD CELLS AUTO 0.0 /100WBC; PLT - PLATELET COUNT 270 10^3/uL (130-450); RED CELL DISTRIBUTION WIDTH 12.0 % (12.0-15.0)
[2025-06-04 21:45] LABS: ALT ALANINE AMINOTRANSFERASE 14.0 IU/L (10-60); AST ASPARTATE AMINOTRANSFERASE 14.0 IU/L (10-42); BUN - BLOOD UREA NITROGEN 19.0 mg/dL (6-20); CARBON DIOXIDE - CO2 30.0 mmol/L (21-32); CREATININE 1.4 mg/dL (0.6-1.3); GFR - MDRD 52.0 (>89)
[2025-06-04] MEDS: HYDROmorphone 1 MG/ML CARPUJECT IVP STA ×2 (21:48→22:47)
[2025-06-04] MEDS: ONDANSETRON 4 MG/2 ML VIAL IVP STA (21:49)
[2025-06-05 00:07] LABS: KETONES,URINE (UA) NEGATIVE (NEGATIVE); OCCULT BLOOD,URINE TRACE-INTACT (NEGATIVE)
[2025-06-05 00:08] LABS: GLUCOSE, URINE (UA) >=1000 mg/dL (NEGATIVE)
[2025-06-05 00:26] LABS: SQUAMOUS EPITHELIAL CELL,UR FEW Squamous (<= Few)
[2025-06-05] MEDS: SODIUM CHLORIDE 0.9% 1,000 ML IV STA (00:42)
[2025-06-05] MEDS: HYDROmorphone 1 MG/ML CARPUJECT IVP STA (00:42)
--- NOTE | 2025-06-05 01:17 | HISTORY & PHYSICAL EXAMINATION ---
Chief Complaint Chief Complaint Chief Complaint: back pain History of Present Illness History Obtained From Records Reviewed: yes History obtained from: patient , ED physician Exam Limitations: telemedicine History of Present Illness HPI Comment/Other: Mr. Combs is a 60yom with a history of DM2 who presents with left sided flank pain. pain started a week prior to presentation. worsened with movement. pain radiated along his left flank into his lower back. denies any precipitating factors. he was evaluated at an outside facility and imaging showed a 1cm renal stone located at the UV junction of the left ureter. case was discussed with urology continuity coordinator and due to recurrent and persistent pain, hospitalist was asked to admit for further evaluation. This visit was performed using telehealth tools, including phone and live-video. patient provided verbal consent to complete this telemedicine encounter. During the time my interview and evaluation, the patient was located at [facility] in the [facility], I was located in [place]. Review of Systems Status of ROS: 10 or more systems reviewed and unremarkable except as noted in history and below PFSH Active Problems All Active Problems (Updated 06/05/25 @ 00:32 by Jae Khan MD) Renal colic on left side (Acute) Calculus of proximal left ureter (Acute) Dehydration (Acute) Otitis media (Acute) Pneumonia (Acute) Chest pain (Acute) Medical History Medical History (Updated 06/05/25 @ 00:32 by Jae Khan MD) Adrenal gland cyst Diabetes type 2 Kidney stone Pulmonary embolism Social History Social History (Updated 06/03/25 @ 02:50 by Marie Foster RN) Smoking Status: Former smoker If you are a former smoker, when did you quit? (Date/Year): 8190822 Number of Years Smoked: 40 Do you feel safe in your home environment?: Yes History of physical, verbal, emotional, or financial abuse?: No Frequency: Occasional POLST Patient has POLST: No Meds/Allgy Home Medications Ambulatory Orders Medication Instructions Recorded Confirmed rivaroxaban 20 mg tablet (Xarelto) 20 mg PO DAILY 12/1406/03/25 dulaglutide 1.5 mg/0.5 mL 1.5 mg subcut OAW 06/03/25 1 [facility] metformin 500 mg tablet,extended 1,000 mg PO DAILY 06/03/25 release 24 hr oxycodone 5 mg tablet 5 mg PO Q6H PRN pain 5 06/03/25 tamsulosin 0.4 mg capsule 0.4 mg PO DAILY 06/03/25 Allergies Allergies Allergy/AdvReac Type Severity Reaction Status Date / Time No Known Drug Allergies Allergy Verified 06/04/25 21:11 Exam Exam Vital Signs: Vital Signs x48h Temp Pulse Resp BP Pulse Ox 06/04/25 23:24 59 L 12 166/93 H 95 06/04/25 21:11 36.5 C 64 20 156/61 H 98 Constitutional normal general appearance and no apparent distress Cardiovascular normal heart rate noted and regular rhythm noted Gastrointestinal nondistended Genitourinary CVA tenderness noted left flank pain Conclusion/Plan Problem List (1) Calculus of proximal left ureter: Plan: seen on prior imaging, OSH. -will obtain renal ultrasound -urology consulted -pain mangment coverage with dilaudid, oxycodone and tylenol as tolerated (2) Diabetes type 2: Plan: home medication reviewed. jardiance and metformin on hold -monitor with acucheck and cover with sliding scale (3) Pulmonary embolism: Plan: home medicaition reviewed -eliquis on hold in anticipation of procedure, will resume s/p Lab Results Lab results reviewed: Yes 06/04/25 21:25 06/04/25 21:25 Core Measures Anticipated LOS I expect patient to be DC'd or transferred within 96 hours.: Yes Telemedicine Consult Details Provider Location & Consult Time Telemedicine consultation conducted via videoconferencing?: Yes
[2025-06-05] MEDS ORDERED: ONDANSETRON ODT 4 MG TABLET TL PRN (01:34)
[2025-06-05] MEDS ORDERED: ONDANSETRON 4 MG/2 ML VIAL IVP PRN ×3 (01:34→12:50)
[2025-06-05] MEDS ORDERED: SODIUM CHLORIDE FLUSH 0.9% 10 ML SYRINGE IVP PRN (01:34)
[2025-06-05] MEDS: SODIUM CHLORIDE 0.9% 1,000 ML IV SCH (01:46)
[2025-06-05] MEDS: SODIUM CHLORIDE FLUSH 0.9% 10 ML SYRINGE IVP SCH (02:11)
[2025-06-05] MEDS: INSULIN LISPRO 300 UNIT/3 ML PEN SUBQ SCH (02:16)
[2025-06-05 04:59] LABS: HCT - HEMATOCRIT 39.7 % (42.0-52.0); HGB - HEMOGLOBIN 12.9 g/dL (14.0-18.0); MEAN PLATELET VOLUME 9.4 fL (7.4-11.4); NRBC ABSOLUTE COUNT (AUTO) 0.00 x10^3/uL; NUCLEATED RED BLOOD CELLS AUTO 0.0 /100WBC; PLT - PLATELET COUNT 254 10^3/uL (130-450); RED CELL DISTRIBUTION WIDTH 12.1 % (12.0-15.0)
[2025-06-05 05:17] LABS: ALT ALANINE AMINOTRANSFERASE 13.0 IU/L (10-60); AST ASPARTATE AMINOTRANSFERASE 14.0 IU/L (10-42); BUN - BLOOD UREA NITROGEN 16.0 mg/dL (6-20); CARBON DIOXIDE - CO2 28.0 mmol/L (21-32); CREATININE 1.4 mg/dL (0.6-1.3); GFR - MDRD 52.0 (>89)
[2025-06-05] MEDS: oxyCODONE 5 MG TABLET PO PRN (06:45)
--- NOTE | 2025-06-05 07:09 | CONSULTATION NOTE ---
Chief Complaint Chief Complaint Chief Complaint: left flank pain History of Present Illness Admitted From Admitted From:: ER History Obtained From Records Reviewed: patient History obtained from: patient Exam Limitations: no OSH imaging to review History of Present Illness HPI Comment/Other: Paresh is a 60-year-old male with a history of type 2 diabetes and pulmonary embolism who reportedly had a 1 cm left UPJ stone identified at [facility] last week and was sent home for outpatient follow-up but had issues with his insurance and has been doing okay and then had significant pain yesterday prompting ER visit. Urology was consulted. We do not have images to review. He is evaluated at bedside on the morning of June 05 remained afebrile hemodynamically stable overnight. He is creatinine was slightly elevated 1.4 from his baseline of perhaps 1.2 and he has no significant leukocytosis. [facility] Active Problems All Active Problems (Updated 06/05/25 @ 00:32 by Jae Khan MD) Renal colic on left side (Acute) Calculus of proximal left ureter (Acute) Dehydration (Acute) Otitis media (Acute) Pneumonia (Acute) Chest pain (Acute) Medical History Medical History (Updated 06/05/25 @ 00:32 by Jae Khan MD) Adrenal gland cyst Diabetes type 2 Kidney stone Pulmonary embolism Social History Social History (Updated 06/03/25 @ 02:50 by Marie Foster RN) Smoking Status: Former smoker If you are a former smoker, when did you quit? (Date/Year): 8190822 Number of Years Smoked: 40 Second hand tobacco smoke exposure: No Do you dip or chew tobacco?: No Do you vape?: No Patient requests smoking cessation consult: No Initiate information on smoking cessation: No Level: Independent Do you feel safe in your home environment?: Yes History of physical, verbal, emotional, or financial abuse?: No Frequency: Occasional Substance Use: denies use POLST Patient has POLST: No Meds/Allgy Home Medications Ambulatory Orders Medication Instructions Recorded Confirmed rivaroxaban 20 mg tablet (Xarelto) 20 mg PO DAILY 12/1406/03/25 dulaglutide 1.5 mg/0.5 mL 1.5 mg subcut OAW 06/03/25 1 subcutaneous pen injector (Trulicity) metformin 500 mg tablet,extended 1,000 mg PO DAILY 06/03/25 release 24 hr oxycodone 5 mg tablet 5 mg PO Q6H PRN pain 5 06/03/25 tamsulosin 0.4 mg capsule 0.4 mg PO DAILY 06/03/25 Allergies Allergies Allergy/AdvReac Type Severity Reaction Status Date / Time No Known Drug Allergies Allergy Verified 06/04/25 21:11 Results Lab Results Lab results reviewed: Yes 06/05/25 04:27 06/05/25 04:27 Other Lab Results: Lab Results x24hrs 06/05/25 06/04/25 06/04/25 Range/Units 04:27 23:50 21:25 WBC 9.1 7.6 (4.8-10.8) x10^3/uL RBC 4.09 L 4.16 L (4.70-6.10) 10^6/uL Hgb 12.9 L 13.1 L (14.0-18.0) g/dL Hct 39.7 L 40.0 L (42.0-52.0) % MCV 97.1 H 96.2 H (80.0-94.0) fL MCH 31.5 H 31.5 H (27.0-31.0) pg MCHC 32.5 32.8 (32.0-36.0) g/dL RDW 12.1 12.0 (12.0-15.0) % Plt Count 254 270 (130-450) 10^3/uL MPV 9.4 9.0 (7.4-11.4) fL Neut # (Auto) 6.5 4.6 (1.5-6.6) 10^3/uL Lymph # (Auto) 1.1 L 1.5 (1.5-3.5) 10^3/uL [place] # (Auto) 1.1 H 1.0 (0.0-1.0) 10^3/uL Eos # (Auto) 0.2 0.4 (0.0-0.7) 10^3/uL Baso # (Auto) 0.1 0.1 (0.0-0.1) 10^3/uL Absolute Nucleated RBC 0.00 0.00 x10^3/uL Nucleated RBC % 0.0 0.0 /100WBC Sodium 136 137 (135-145) mmol/L Potassium 4.6 H 3.9 (3.5-4.5) mmol/L Chloride 103 102 (101-111) mmol/L Carbon Dioxide 28 30 (21-32) mmol/L Anion Gap 5.0 L 5.0 L (6-13) BUN 16 19 (6-20) mg/dL Creatinine 1.4 H 1.4 H (0.6-1.3) mg/dL Estimated GFR (MDRD) 52 L 52 L (>89) Glucose 167 H 230 H (74-104) mg/dL Calcium 8.7 8.9 (8.5-10.3) mg/dL Total Bilirubin 0.6 0.4 (0.2-1.0) mg/dL AST 14 14 (10-42) IU/L ALT 13 14 (10-60) IU/L Alkaline Phosphatase 57 57 (42-121) IU/L Total Protein 6.9 7.1 (6.4-8.9) g/dL Albumin 4.1 4.2 (3.2-5.5) g/dL Globulin 2.8 2.9 (2.1-4.2) g/dL Albumin/Globulin Ratio 1.5 1.4 (1.0-2.2) Lipase 22 (11-82) U/L Urine Color LT. YELLOW Urine Clarity CLEAR (CLEAR) Urine pH 7.5 (5.0-7.5) PH Ur Specific [place] 1.015 (1.002-1.030) Urine Protein TRACE (NEGATIVE) mg/dL Urine Glucose (UA) >=1000 H (NEGATIVE) mg/dL Urine Ketones NEGATIVE (NEGATIVE) mg/dL Urine Occult Blood TRACE-INTACT (NEGATIVE) Urine Nitrite NEGATIVE (NEGATIVE) Urine Bilirubin NEGATIVE (NEGATIVE) Urine Urobilinogen 0.2 (NORMAL) (NORMAL) E.U./dL Ur Leukocyte Esterase NEGATIVE (NEGATIVE) Urine RBC 0-5 (0-5) /HPF Urine WBC 0-3 (0-3) /HPF Ur Squamous Epith Cells FEW Squamous (<= Few) Urine Bacteria Rare (None Seen) /HPF Ur Microscopic Review INDICATED Urine Culture Comments NOT INDICATED Exam Exam Vital Signs: Vital Signs x48h Temp Pulse Pulse Resp BP BP Pulse Ox 06/05/25 04:49 37.1 C 57 L 14 137/76 H 94 06/05/25 01:50 37.3 C 57 L 14 155/83 H 96 06/05/25 01:00 54 L 20 140/81 H 96 06/04/25 23:24 59 L 12 166/93 H 95 NAD RRR CTA b/l Conclusion/Plan Problem List (1) Calculus of proximal left ureter: Plan: Cystoscopy, left ureteroscopy, laser lithotripsy, stent was recommended to treat this patients condition. Risks including but not limited to infection, bleeding, pain, recurrence, need for additional procedures, anesthesia risks were discussed in depth. I discussed expected pre/intra/postoperative concerns. The patient freely consents and states understanding. He understands we may only be able to perform the stent if the stone is quite proximal. NPO/IVF Lab Results Lab results reviewed: Yes 06/05/25 04:27 06/05/25 04:27
--- NOTE | 2025-06-05 09:36 | Ultrasound Report ---
PROCEDURE: US Renal (Retroperitoneal) INDICATIONS: renal colic TECHNIQUE: Real-time scanning was performed of the retroperitoneal organs, with image documentation. COMPARISON: None. FINDINGS: Right kidney measures 12 cm. Left kidney measures 13 cm. Mild left hydronephrosis and proximal ureter ectasia. No discrete sonographic evidence of renal mass. Left ureteral jet was not seen at the time of exam. Bladder volume is 163.5 cc. Patient was unable to void. IMPRESSION: Mild left hydronephrosis and proximal ureter ectasia. Left ureteral jet was not seen. Consider CT to further evaluate. Bladder volume is 163.5 cc. Patient was unable to void. Reviewed by: Sheldon Lima MD on 06/05/2025 9:33 AM PDT Approved by: Sheldon Lima MD on 06/05/2025 9:33 AM PDT Station ID: [id number]
[2025-06-05] MEDS: HYDROmorphone 0.5 MG/0.5 ML SYRINGE IVP PRN (09:37)
--- NOTE | 2025-06-05 10:44 | ANESTHESIA PROCEDURE NOTE ---
Pre-Anesthesia VS, & Labs Diagnosis Surgical Diagnosis:: L renal stone Procedure Procedure: cysto, L ureteroscopy, laser litho with stent Vitals Vital Signs: Temp Pulse Resp BP Pulse Ox 37.3 C 61 14 146/86 H 97 06/05/25 08:47 06/05/25 08:47 06/05/25 08:47 06/05/25 08:47 06/05/25 08:47 NPO NPO: >8 hours Lab Results Current Lab Results: Laboratory Tests 06/05/25 04:27: WBC 9.1, RBC 4.09 L, Hgb 12.9 L, Hct 39.7 L, MCV 97.1 H, MCH 31.5 H, MCHC 32.5, RDW 12.1, Plt Count 254, MPV 9.4, Neut # (Auto) 6.5, Lymph # (Auto) 1.1 L, [place] # (Auto) 1.1 H, Eos # (Auto) 0.2, Baso # (Auto) 0.1, Absolute Nucleated RBC 0.00, Nucleated RBC % 0.0, Sodium 136, Potassium 4.6 H, Chloride 103, Carbon Dioxide 28, Anion Gap 5.0 L, BUN 16, Creatinine 1.4 H, Estimated GFR (MDRD) 52 L, Glucose 167 H, Calcium 8.7, Total Bilirubin 0.6, AST 14, ALT 13, Alkaline Phosphatase 57, Total Protein 6.9, Albumin 4.1, Globulin 2.8, Albumin/Globulin Ratio 1.5 06/04/25 21:25: WBC 7.6, RBC 4.16 L, Hgb 13.1 L, Hct 40.0 L, MCV 96.2 H, MCH 31.5 H, MCHC 32.8, RDW 12.0, Plt Count 270, MPV 9.0, Neut # (Auto) 4.6, Lymph # (Auto) 1.5, [place] # (Auto) 1.0, Eos # (Auto) 0.4, Baso # (Auto) 0.1, Absolute Nucleated RBC 0.00, Nucleated RBC % 0.0, Sodium 137, Potassium 3.9, Chloride 102, Carbon Dioxide 30, Anion Gap 5.0 L, BUN 19, Creatinine 1.4 H, Estimated GFR (MDRD) 52 L, Glucose 230 H, Calcium 8.9, Total Bilirubin 0.4, AST 14, ALT 14, Alkaline Phosphatase 57, Total Protein 7.1, Albumin 4.2, Globulin 2.9, Albumin/Globulin Ratio 1.4, Lipase 22 Lab results reviewed: Yes 06/05/25 04:27 06/05/25 04:27 Meds/Allgy Home Medications Ambulatory Orders Medication Instructions Recorded Confirmed rivaroxaban 20 mg tablet (Xarelto) 20 mg PO DAILY 12/1406/05/25 dulaglutide 1.5 mg/0.5 mL 1.5 mg subcut OAW 06/03/25 1 subcutaneous pen injector (Trulicity) metformin 500 mg tablet,extended 1,000 mg PO DAILY 06/05/25 release 24 hr oxycodone 5 mg tablet 5 mg PO Q6H PRN pain 5 06/05/25 tamsulosin 0.4 mg capsule 0.4 mg PO DAILY 06/03/25 Allergies Allergies Allergy/AdvReac Type Severity Reaction Status Date / Time No Known Drug Allergies Allergy Verified 06/04/25 21:11 PFSH Active Problems All Active Problems (Updated 06/05/25 @ 10:43 by Asael Pagan CRNA) Renal colic on left side (Acute) Calculus of proximal left ureter (Acute) Dehydration (Acute) Otitis media (Acute) Pneumonia (Acute) Chest pain (Acute) Medical History Medical History (Updated 06/05/25 @ 10:43 by Asael Pagan CRNA) Renal cyst, left Adrenal gland cyst Diabetes type 2 Kidney stone Pulmonary embolism Social History Social History (Updated 06/03/25 @ 02:50 by Marie Foster RN) Smoking Status: Former smoker If you are a former smoker, when did you quit? (Date/Year): 8190822 Number of Years Smoked: 40 Second hand tobacco smoke exposure: No Do you dip or chew tobacco?: No Do you vape?: No Patient requests smoking cessation consult: No Initiate information on smoking cessation: No Level: Independent Do you feel safe in your home environment?: Yes History of physical, verbal, emotional, or financial abuse?: No Frequency: Occasional Substance Use: denies use POLST Patient has POLST: No Anesthesia Exam (Expanded) Exam General: Alert, Oriented x3 and Cooperative Dental: WNL Mouth Openin Fingerbreadth Neck Mobility: Normal Mallampati classification: II Thyromental Distance: 4-6 cm Respiratory: Lungs clear, Normal breath sounds and No respiratory distress Cardiovascular: Regular rate Neurological: Normal speech Mental/Cognitive Status: Alert/Oriented X3 and Normal for patient Cognitive Status: Within normal limits Exam Exam Vital Signs: Vital Signs x48h Temp Pulse Resp BP Pulse Ox 06/05/25 08:47 37.3 C 61 14 146/86 H 97 06/05/25 04:49 37.1 C 57 L 14 137/76 H 94 Plan Problem List (1) Calculus of proximal left ureter: Plan: Cystoscopy, left ureteroscopy, laser lithotripsy, stent was recommended to treat this patients condition. Risks including but not limited to infection, bleeding, pain, recurrence, need for additional procedures, anesthesia risks were discussed in depth. I discussed expected pre/intra/postoperative concerns. The patient freely consents and states understanding. He understands we may only be able to perform the stent if the stone is quite proximal. NPO/IVF Plan Anesthesia Type: General Consent for Procedure(s) Verified and Reviewed: Yes Code Status: Attempt Resuscitation ASA Classification ASA classification: 3-Severe systemic disease Is this case an emergency?: Yes
[2025-06-05] MEDS ORDERED: fentaNYL 100 MCG/2 ML VIAL ONE (11:35)
[2025-06-05] MEDS ORDERED: MIDAZOLAM 2 MG/2 ML VIAL ONE (11:35)
[2025-06-05] MEDS ORDERED: PROPOFOL 200 MG/20 ML VIAL IVP ONE (11:36)
[2025-06-05] MEDS ORDERED: LIDOCAINE-PF 2% 10 ML AMP SUBQ ONE (11:36)
[2025-06-05] MEDS ORDERED: LACTATED RINGERS 1,000 ML IV PRN (11:38)
[2025-06-05] MEDS ORDERED: LIDOCAINE 2% URO-JET 5 ML SYRINGE UR ONE (11:40)
--- NOTE | 2025-06-05 12:20 | PHARMACY PROGRESS NOTE ---
Best Possible Medication History Admit Date and Time: 06/05/25 0036 Home Medications Medication Instructions Recorded Confirmed Type rivaroxaban 20 mg tablet (Xarelto) 20 mg PO DAILY 12/1406/05/25 History dulaglutide 1.5 mg/0.5 mL 1.5 mg subcut OAW 06/03/25 1 History subcutaneous pen injector (Trulicity) metformin 500 mg tablet,extended 1,000 mg PO DAILY 06/05/25 History release 24 hr oxycodone 5 mg tablet 5 mg PO Q6H PRN pain 5 06/05/25 History tamsulosin 0.4 mg capsule 0.4 mg PO DAILY 06/03/25 History Processed by: Pharmacy (Medication reconciliation completed by Stock Sheets Cleaner InspectorDavid) Medications reviewed in ED?: No Medication History completed: Yes Patient Interview: Completed Secondary Source(s): Insurance records [facility] Statement: As the person ultimately responsible for medication therapy, providers are able to order a medication from an existing home medication list in [facility] via the "Reconcile Routine" prior to Confirmation of that medication by telecommunications support. Such practice is discouraged except when the physician, in their clinical judgment, deems that a medical need exists for a medication without regard to previous use.
[2025-06-05] MEDS ORDERED: iohexoL-240 20 ML VIAL IVP ONE (12:23)
--- NOTE | 2025-06-05 12:23 | Discharge Summary ---
"Discharge Summary Admit Date: 06/05/25 Discharge Date: 06/05/25 Discharging Provider: Dr. Davian Castorena Primary Care Provider: Chris Valerio Code Status: Attempt Resuscitation Discharge Facility Name: Home, self care DIAGNOSES Discharge Diagnoses with Status of Each Condition: Left ureteral stonepatient presented with left flank pain with radiation down to the ground. Urology was consultedcompleted a cystoscopy with left ureteroscopy, stent placement. Patient will be discharged home with 10 [place]'s to be used as needed for severe pain. He will be continued on his home medications. He was advised to follow closely with urology, and was given his follow-up information. Acute kidney injuryunclear baseline. Patient did have a creatinine of 1.2 in 2019, but we have no other records. Presents with a creatinine of 1.4. Diabetes mellituscontinue home Trulicity, metformin. Pulmonary embolismcontinue home Xarelto. HPI History of Present Illness: Yusuf Carlson: Mr. Combs is a 60yom with a history of DM2 who presents with left sided flank pain. pain started a week prior to presentation. worsened with movement. pain radiated along his left flank into his lower back. denies any precipitating factors. he was evaluated at an outside facility and imaging showed a 1cm renal stone located at the UV junction of the left ureter. case was discussed with urology agriculture extension specialist and due to recurrent and persistent pain, hospitalist was asked to admit for further evaluation. This visit was performed using telehealth tools, including phone and live-video. patient provided verbal consent to complete this telemedicine encounter. During the time my interview and evaluation, the patient was located at [facility] in the [facility], I was located in [place]. CONSULTS | PROCEDURES Consultations: Urology Procedures: Retroperitoneal ultrasound HOSPITAL COURSE Hospital Course: Patient is a 60-year-old male with a history of pulmonary embolism on Xarelto, oyt-[id number]-lompiegca diabetes mellitus who presented with left flank pain. He was admitted to [facility] about a week ago, and was diagnosed with a 1 cm stone. He was discharged home with pain relief, and was advised to follow-up with urology, but was unable to make this appointment. As such, he presented again with continued pain. Urology did do a cystoscopy, and ureteral stent was placed. He was advised extensively to follow-up in the outpatient setting, and was discharged home with close follow-up. ALLERGIES Allergies Allergy/AdvReac Type Severity Reaction Status Date / Time No Known Drug Allergies Allergy Verified 06/04/25 21:11 MEDICATIONS Ambulatory Orders Medication Instructions Recorded Confirmed rivaroxaban 20 mg tablet (Xarelto) 20 mg PO DAILY 12/1406/05/25 dulaglutide 1.5 mg/0.5 mL 1.5 mg subcut OAW 06/03/25 1 subcutaneous pen injector (Trulicity) metformin 500 mg tablet,extended 1,000 mg PO DAILY 06/05/25 release 24 hr oxycodone 5 mg tablet 5 mg PO Q6H PRN pain 5 06/05/25 tamsulosin 0.4 mg capsule 0.4 mg PO DAILY 06/03/25 hydrocodone 5 mg-acetaminophen 325 1 tab PO Q4H PRN Pa in #10 tabs 06/05/25 mg tablet PHYSICAL EXAM AT DISCHARGE Vital Signs: Vital Signs x48h Temp Pulse Pulse Resp BP BP Pulse Ox 06/05/25 15:50 99.0 F 61 20 133/76 H 95 06/05/25 15:40 99.0 F 61 20 133/76 H 95 06/05/25 14:50 98.4 F 56 L 18 139/72 H 95 06/05/25 13:50 97.9 F 55 L 20 130/66 96 06/05/25 13:20 97.0 F L 60 18 134/76 H 94 06/05/25 13:10 98.4 F 60 14 139/85 H 96 06/05/25 13:05 98.4 F 69 17 128/78 95 06/05/25 13:00 97.9 F 64 15 133/78 H 95 06/05/25 12:55 97.9 F 61 14 136/74 H 94 06/05/25 12:50 97.7 F 60 16 140/74 H 94 06/05/25 12:45 97.3 F L 65 16 145/72 H 95 06/05/25 12:40 97.3 F L 68 20 135/73 H 95 General Appearance: positive No acute distress and Alert; negative Anxious Eyes Bilateral: positive Normal inspection, PERRL and EOMI ENT: positive ENT inspection nml, Pharynx nml and No signs of dehydration Neck: positive Nml inspection, Thyroid nml, No JVD and Trachea midline Respiratory: positive Chest non-tender, No respiratory distress and Breath sounds nml Cardiovascular: positive Regular rate & rhythm, No murmur and No gallop Peripheral Pulses: positive 2+ Abdomen: positive Non-tender, Nml bowel sounds, No distention and Other (+ CVA tenderness on left ) Back: positive Nml inspection; negative CVA tenderness (R) or CVA tenderness (L) Skin: positive Color nml, No rash, Warm and Dry Extremities: positive Non-tender, Full ROM and Nml appearance Neurologic/Psychiatric: positive Oriented x3, Motor nml, Sensation nml and Mood/affect nml LABS 06/05/25 04:27 06/05/25 04:27 DIAGNOSTIC IMAGING Diagnostic Imaging Results: Final report reviewed FOLLOW UP Follow Up: Follow up urology. Follow up PCP. TIME SPENT Time Spent in Discharge (Minutes): 35 Discharge Plan Discharge Patient Disposition: Home, Self Care Condition: Good Prescriptions: New hydrocodone-acetaminophen 5-325 mg tablet 1 tab PO Q4H PRN (Reason: Pain) Qty: 10 0RF Continued Xarelto 20 MG tablet 20 mg PO DAILY Trulicity 1.5 mg/0.5 mL pen injector 1.5 mg SUBCUT OAW Patient Comments: Patient states takes at night every Wednesday metformin 500 mg tablet extended release 24 hr 1,000 mg PO DAILY oxycodone 5 mg tablet 5 mg PO Q6H PRN (Reason: pain) Patient Comments: 5 mg orally every 6 hours As Needed for pain tamsulosin 0.4 mg capsule 0.4 mg PO DAILY Activity Restrictions/Additional Instructions: DIET - You may resume your normal diet if there is no nausea or vomiting. You may want to avoid spicy, greasy, or heavy foods today to minimize gas. - If nausea or vomiting occurs, don't eat or drink anything for one hour. Then start drinking small amounts of clear liquids. Later, add crackers, gradually building up to your usual diet. ACTIVITY INSTRUCTIONS * No significant limitations with stent in place DISCHARGE INSTRUCTIONS * You have a ureteral stent in place. This must be removed by the urologist such as Dr. Payton in the future. You still have your large kidney stone. You need further management of these both * Call for fever greater than 100.4 Fahrenheit * It is normal to have increased frequency and urgency of urination along with blood in the urine while the stent is in place MEDICATIONS * Take Tylenol as needed for pain. Take narcotic pain medications for rescue pain. Take stool softeners on days when you take pain medications ANESTHESIA PRECAUTIONS Anesthesia and medications given during surgery remain in your body up to 24 hours. This may slow reaction time and/or decrease coordination. FOR THE NEXT 24 HOURS: - Have a responsible person with you - Avoid any activity that requires you to be alert and coordinated - DO NOT DRIVE a motor vehicle for 24 hours or as long as you are taking opoid pain medication - Do not drink alcoholic beverages - Do not smoke unattended Patient Date Escort Date RN Date Interventions: Belongings Inventory Last Done: 06/05/25 10:00 Print Language: Togolese Patient Instructions: Surg Dc Follow-up Care: George Payton MD [Provider Admit Priv/Credential, Urology] Referral Note: You be contacted to follow-up with Dr. Payton in the next few weeks CHRIS VALERIO, DO [Primary Care Provider, Family Practice] Vitals documented within 30 minutes of discharge?: Yes"
[2025-06-05] MEDS ORDERED: ONDANSETRON 4 MG/2 ML VIAL ONE (12:34)
[2025-06-05] MEDS ORDERED: fentaNYL 100 MCG/2 ML VIAL IVP PRN (12:36)
[2025-06-05] MEDS ORDERED: MORPHINE 2 MG/ML CARPUJECT IVP PRN (12:36)
[2025-06-05] MEDS ORDERED: ATROPINE ABBOJECT 1 MG/10 ML SYRINGE IVP PRN (12:36)
[2025-06-05] MEDS ORDERED: METOCLOPRAMIDE 10 MG/2 ML VIAL IVP PRN (12:36)
[2025-06-05] MEDS ORDERED: NALOXONE 0.4 MG/ML VIAL IVP PRN (12:36)
[2025-06-05] MEDS ORDERED: HYDROmorphone 0.5 MG/0.5 ML SYRINGE IVP PRN (12:36)
[2025-06-05] MEDS ORDERED: ePHEDrine 50 MG/ML VIAL IVP PRN (12:36)
[2025-06-05] MEDS ORDERED: HYDROcod/ACETAM 5/325 MG TABLET PO PRN (12:50)
--- NOTE | 2025-06-05 12:50 | OPERATIVE REPORT ---
Operative Report General Admit Date: 06/05/25 Procedure Data: Operation Date: 06/05/25 12:00 Proposed Procedures p CYSTO, LEFT URETERSOCOPY, LASER LITHOTRIPST STENT PLACEMENT(Left) - George Payton MD Actual Procedures p cystoscopy, left retrograde pyelogram, STENT PLACEMENT(Left) - George Payton MD Pre-Op Diagnosis: LEFT URETRAL STONE Anesthesia Type General Case Times Into Recovery: 06/05/25 12:41 Pre-Op Diagnosis: left UPJ stone Post Op Diagnosis: left UPJ stone Procedure Note Estimated Blood Loss (ml): 0 Findings: left radioopaque stone Other Other Information/Narrative: After informed consent was obtained the patient was brought to the OR and laid in the supine position. The patient was anesthetized per anesthesia protocols and prepped and draped in usual sterile fashion in the dorsolithotomy position. A formal timeout was performed reconfirmed the patient and procedure and laterality. A 22 [place] cystoscope was advanced easily per urethra into the urinary bladder. The bladder was inspected in full and there were no masses or lesions or other concerns. Fluoroscopic review showed a large 1 cm radiopaque stone at the UPJ on the left. We attempted placed sensor wire past this but we struggled to do so. We then placed a 5 [place] open-ended ureteral catheter over sensor wire just distal to the stone and we were then able to use a sensor wire better to push through or passed the stone. The 5 [place] catheter was placed over this. I did retrograde pyelograms performed confirming a moderate hydronephrotic left renal system. The sensor wire was replaced and a 6 [place] 30 cm stent was placed with good curl noted in the kidney and good curl noted in the bladder. Bladder was emptied and Uro-Jet was placed This concluded the procedure the patient tolerated procedure well. He will go home today and follow-up for definitive stone management
[2025-06-05] MEDS ORDERED: LACTATED RINGERS 1,000 ML IV SCH (13:00)
--- NOTE | 2025-06-05 13:35 | ANESTHESIA POST OP EVALUATION ---
Anesthesia Post Eval Post Anesthesia Eval Vitals: Last Vital Signs Temp 36.9 C 06/05/25 13:10 Pulse 60 06/05/25 13:10 Resp 14 06/05/25 13:10 BP 139/85 H 06/05/25 13:10 Pulse Ox 96 06/05/25 13:10 CV Function Including HR & BP: Stable Pain Control: Satisfactory Nausea & Vomiting: Negative Mental Status: Baseline Respiratory Status: Airway Patent Hydration Status: Satisfactory Anesthesia Complications: None
[2025-06-05 15:18] VITALS: O2SAT 95
--- NOTE | 2025-06-05 15:48 | XRAY Report ---
PROCEDURE: FL OR C-Arm Procedure INDICATIONS: Surgical Procedure TECHNIQUE: Intraoperative fluoroscopic guidance was provided and low-resolution fluoroscopic spot films were obtained. COMPARISON: None. FINDINGS: Low-resolution intraoperative spot films show left ureteral stent placement in progress. IMPRESSION: Fluoroscopic guidance. Reviewed by: Ozzy England MD on 06/05/2025 2:45 PM AKDT Approved by: Ozzy England MD on 06/05/2025 2:45 PM AKDT Station ID: [id number]
[2025-06-05] MEDS: ceFAZolin (2G) 2 GM in SODIUM CHLORIDE 0.9% MINIBAG 100 ML IV ONE (15:55)
[2025-06-05 16:39] VITALS: BP 133/76; TEMP 99
== END 2025-06-05 15:45 | disposition home or self-care (01) ==
LOC: MS3 21:08 → ED 21:08 → MS3 06-05 01:42
PROVIDERS: ADMIT Hospitalist; ATTEND Hospitalist
DX: I26.99 Other pulmonary embolism without acute cor pulmonale; Z79.85 Long-term (current) use of injectable non-insulin antidiabetic drugs; E11.65 Type 2 diabetes mellitus with hyperglycemia; Z79.01 Long term (current) use of anticoagulants; N13.2 Hydronephrosis with renal and ureteral calculous obstruction; Z79.84 Long term (current) use of oral hypoglycemic drugs; Z79.899 Other long term (current) drug therapy; Z87.891 Personal history of nicotine dependence; N17.9 Acute kidney failure, unspecified